=== PATIENT | male | born 1955 | race Caucasian/White ===

== ENCOUNTER 2020-01-07 11:37 | Outpatient (CLI) | payer OTHER, SELFPAY ==
[2020-01-07 11:38] VITALS: BMI 28.7
--- NOTE | 2020-01-07 11:38 | NMCV_ITS ---
NM pavel perf SPECT r/s* [id number] Kevin Moreland Age: 64 Gender: M : 1955 Exam Date: 01/07/2020 11:38 Ordering Phys: Epi Daniels DO Technologist: THUAN Boggs Exam Location: [facility] Indications: Chest pain STRESS TEST [facility] IMAGE PROTOCOL Rest/Stress 1 Lexiscan Day Radiopharmaceutical Dose (mCi) Administration Site Administered by Rest: Tc-99m 10.8 IV THUAN Boggs Sestamibi Stress:Tc-99m 32.3 IV THUAN Boggs Sestamibi Rest: 07-Jan-2020 60 Discovery 630 Stress: 07-Jan-2020 30 Discovery 630 0.4mg Lexiscan. Images obtained in supine and prone position. SPECT RESULTS Technical Quality: Good Raw Data Analysis: Normal Image Corrections: No attenuation or motion correction applied Summed Stress Score: 6 Summed Rest Score: 5 Summed Difference Score: 1 PERFUSION FINDINGS Medium-size area of patchy decreased tracer uptake noted in basal to distal inferior and basal to mid inferolateral wall on the rest images which improved on stress images suggestive of artifact. FUNCTIONAL RESULTS (calculated via Gated SPECT) Stress Image LV EF (%): 52 Stress EDV (mL):91 TID: 1.12 Stress ESV (mL):44 Rest Image LV EF (%): 52 FUNCTIONAL FINDINGS: There is normal left ventricular systolic function. IMPRESSIONS This study is negative for ischemia.TID ratio is elevated which could be secondary to left ventricle hypertrophy/subendocardial ischemia in the absence of other parameters. EKG segment will be documented separately. Ian Iniguez MD (Electronically Signed) Final Date: 07 January 2020 14:43 S
--- NOTE | 2020-01-07 11:38 | ECG_ITS ---
NAME OF STUDY: LEXISCAN SESTAMIBI STRESS TEST INDICATION: Chest Pain, NOTE: Please note that this is the electrocardiogram portion of the Lexiscan/Sestamibi stress test. The perfusion scan will be documented separately. DATA: Baseline heart rate was 52 beats per minute. Baseline blood pressure was 144/72 millimeters of mercury. Target heart rate was 158. Maximum heart rate achieved was 105. which was 66 % of the predicted target heart rate. Maximum blood pressure was 144/83 millimeters of mercury. The reason for ending the test was completion of the protocol. The patient did not experience any symptoms. ELECTROCARDIOGRAM: BASELINE: Sinus bradycardia. Normal axis. Otherwise, no ST-T changes suggestive of ischemia noted. No arrhythmia noted. After Lexiscan injection, no ST-T changes suggestive of ischemic noted. No arrhythmia noted. CONCLUSION: Please note due to baseline abnormality of the EKG specificity and sensitivity of the EKG portion of LexiScan MIBI stress test will be low 1. EKG not suggestive of ischemia 2. Lexiscan injection unremarkable. 3. Perfusion scan will be documented separately. Electronically Signed On 01-07-2020 15:33:36 MEDIA CONSULTANT by Ian Iniguez M.D. [id number]
[2020-01-07] MEDS: regadenoson 0.4 Mg/5 ml Syringe IVP (12:42)
[2020-01-07 13:03] VITALS: BP 126/83; PULSE 68
== END 2020-01-07 11:38 | disposition home or self-care (01) ==
LOC: CDL 11:37
PROVIDERS: Family Provider Emergency Medicine Emergency Medical Services; Visit Provider Emergency Medicine Emergency Medical Services
DX: R07.9 Chest pain, unspecified (principal); R00.1 Bradycardia, unspecified
CPT/HCPCS: 78452; 93017; A9500; J2785

== ENCOUNTER 2022-01-21 11:30 | Emergency (ER) | payer OTHER, SELFPAY ==
--- NOTE | 2022-01-21 11:44 | W.ED.FALL ---
HPI - Fall General: Chief Complaint: Fall Stated Complaint: fall 6ft, bilateral rib pain, side pain Time Seen by Provider: 01/21/22 11:43 History of Present Illness: Mr. Moreland is a 66 old gentleman without significant past medical history presents the emergency department due to fall injury. He has been at his baseline health and was working on cutting branches on a tree standing on his driveway. His driveway is a turn and he was in the upper portion which is approximately 6 feet above the lower portion. A half wall gave way that he was leaning against and he fell landing on his right side. He denies associated loss of consciousness. He estimates he laid on the ground for about 5 minutes before being up to walk inside. He currently has moderate to severe right rib pain and associated shortness of breath. Also has right femur pain that is worse with palpation however he was able to ambulate. No other specific changes in health, exacerbating, relieving factors identified. Onset (ago): minute(s) Fall from: from height (distance) Fall witnessed: no Place fall occurred: home Loss of consciousness: None Prolonged down time: no Symptoms prior to fall: none Context: other Location of injury: chest and other Severity: severe Quality: sharp Review of Systems General: Reports: 10 or more systems reviewed and unremarkable except in HPI and below PFSH ED PFSH: Medical History GERD (gastroesophageal reflux disease) Graves disease Hypothyroidism Pure hypercholesterolemia Surgical History H/O vasectomy History of subtotal thyroidectomy 1991 Family History Mother Cancer Brother Cancer Social History Smoking and tobacco status: never smoked Physical Exam Const: COMMON NORMALS: alert GENERAL APPEARANCE: cooperative, well developed and in distress (pain) HENMT: COMMON NORMALS: normocephalic and atraumatic HEAD & SCALP: normocephalic and atraumatic OTHER: No evidence of head trauma. Jaw alignment normal. No feldman signs or raccoon eyes. No septal hematoma. Eye: COMMON NORMALS: conjunctivae normal CONJUNCTIVA: Yes conjunctivae normal SCLERA: sclerae normal Neck/C-Spine: COMMON NORMALS: supple GENERAL: Yes trachea midline Chest: OTHER: R sided chest wall ttp Resp: COMMON NORMALS: clear to auscultation bilaterally EFFORT & INSPECTION: Yes able to speak in complete sentences and Yes tachypneic AUSCULTATION: clear to auscultation bilaterally Cardio: COMMON NORMALS: regular rhythm RATE: bradycardic RHYTHM: regular rhythm GI: COMMON NORMALS: Soft to palpation PALPATION: Yes Soft to palpation and No Tenderness to palpation present (GI) PERCUSSION: normal to percussion Back/Pelvis: COMMON NORMALS: no thoracic nor lumbar tenderness Extremity: NARRATIVE EXTREMITY EXAM: Right mid to prox femur ttp, distal CMS intact GENERAL: No edema Neuro: COMMON NORMALS: moves all extremities SENSORIUM/ORIENTATION: Yes alert and No Orientation impaired Psych: COMMON NORMALS: mental status grossly normal and Normal thought process present THOUGHT PROCESS: Normal thought process present Course ED course: - Patient was seen and evaluated by me at bedside - Patient placed on cardiac monitors, IV access obtained - Initial evaluation notable for exam as above. Head to toe exam performed with isolated injuries as above, no evidence of head trauma. - Analgesia ordered, no indication for Tdap update - Given absence of prodromal symptoms and clear explanation for fall no labs indicated at this time - Imaging notable for no pneumothorax, possible nondisplaced posterior right rib fracture noted on chest CT. Negative right femur, negative pelvis. - Upon serial reexamination after treatment the patient was improved with analgesia - Based on patient history, evaluation, labs, and imaging as interpreted the most likely cause of the patient's condition is rib fracture secondary to fall - The results of ED evaluation were discussed with the patient including prescriptions and/or symptomatic cares (if applicable) including appropriate and responsible use, followup plan, and return precautions. Discussed importance of incentive spirometer use and adequate pain control. The patient verbalized understanding and felt safe for discharge. - Patient discharged in satisfactory condition. Note: Click bubbles or prepopulated grant in note writing are used for assistance with data collection and billing and are inherently more limited than narrative and other text portions of this note. Please use narrative for additional clinical history and defer to narrative/free test for any case of contradictory information. If information appears in only free text or click bubble it should be considered present or absent as reported. Please contact note principal technical writer for clarifications of clinical information or contradictory information. MDM is a brief summary, contradictory or erroneous seeming information should be clarified and full note should be reviewed. Vital Signs: Vital signs: Vital Signs Temperature 97.9 F 01/21/22 11:46 Pulse Rate 51 L 01/21/22 13:49 Respiratory Rate 16 01/21/22 13:49 Blood Pressure 151/83 01/21/22 13:49 Pulse Oximetry 93 01/21/22 13:49 MDM - Fall Medical Decision Making 66-year-old gentleman presenting to the emergency department for mechanical fall reporting femur and rib pain. Found to have nondisplaced isolated rib fracture. Symptom improvement with pain control. Satisfactory for outpatient management. Patient discharged with incentive spirometer. Medical Records I reviewed the patient's medical records. Lab Data I reviewed the patient's lab results. Radiology Impressions Chest CT 01/21/22 11:53 IMPRESSION: 1. No pneumothorax or pulmonary contusion. 2. Possible nondisplaced posterior RIGHT 12th rib fracture. Femur X-Ray 01/21/22 11:53 IMPRESSION: Negative right femur. Pelvis X-Ray 01/21/22 11:53 IMPRESSION: 1. No acute pelvic fracture. Discharge Plan Discharge Patient Disposition: Home Clinical Impression: Fall, Fracture of rib, Multiple contusions Condition: Stable Prescriptions: New oxycodone 5 mg tablet 5 mg PO Q6H PRN (Reason: pain) Qty: 20 0RF Miralax 17 gram/dose powder 17 g PO DAILY PRN (Reason: while taking oxycodone) Qty: 238 0RF No Action omeprazole 20 mg capsule,delayed release(DR/EC) 20 mg PO BID PRN (Reason: Heartburn) 0RF calcium carbonate [Tums] 200 mg calcium (500 mg) tablet,chewable 200 mg PO PRN PRN (Reason: Heartburn) 0RF sucralfate 1 gram tablet 1 gm PO DAILY PRN (Reason: unknown) 0RF Vitamin C 500 mg Tablet 2,000 mg PO QPM 0RF Nitrostat 0.4 mg Tablet, Sublingual 0.4 mg SUBLINGUAL Q5M PRN (Reason: Chest Pain) 0RF Rx Instructions: do not exceed 3 doses per episode Excedrin Migraine 250-250-65 mg Tablet 3 tab PO Q6H PRN (Reason: Migraine Headache) 0RF Vitamin D3 125 mcg (5,000 unit) Tablet 125 mcg PO QPM 0RF Vitamin B-12 1 tab PO QPM 0RF Discharge Orders: Discharge ED (Routine); Ordered 01/21/22 Ordered By: Lukas Monge Referrals: Epi Daniels DO [Primary Care Provider] - Discharge Diet: Usual diet Discharge Activity: Increase activity as tolerated Patient Instructions: Rib Fracture (ED), Contusion in Adults (ED), Opioid Safety Activity Restrictions/Additional Instructions: Thank you for visiting the emergency department. You were seen and evaluated for fall. You were found to have a posterior right 12th rib fracture which likely explains your symptoms. Additionally you likely have strains and contusions related to the fall. You will be given a prescription for oxycodone, as discussed this is an opioid and does have associated risks. Please use [id number] medications like acetaminophen and ibuprofen in addition to this. Please do not exceed the daily recommended dosages of these medications and please keep in mind that many namebrand medications contain the same active ingredients. Please use the incentive spirometer. Please follow-up with your primary care provider. Please return to the emergency department for uncontrolled symptoms, cough, bloody sputum, infectious symptoms such as fever without a clear source, or anything else that you are concerned about and feel needs emergency department evaluation. Coding Level of Care Code ED Electronic Warfare Operator for Sherri Canas Exam Comprehensive
[2022-01-21 11:46] VITALS: BP 135/76; PULSE 55; RESP 21; TEMP 36.6; O2SAT 97; BMI 28.5
--- NOTE | 2022-01-21 11:53 | XR_ITS ---
WS: [id number] Exam: XR pelvis 1-2V* [id number] Date/Time of Exam: 01/21/2022 12:12 PM Reason For Exam: fall, right thigh pain No acute pelvic fracture. The hips are bilaterally intact. DJD of the SI joints. Unremarkable soft ti ssues. XR/XR pelvis 1-2V* [id number] IMPRESSION: 1. No acute pelvic fracture.
--- NOTE | 2022-01-21 11:53 | CT_ITS ---
WS: [id number] CT CHEST WITHOUT INTRAVENOUS CONTRAST HISTORY: fall, right sided rib pain TECHNIQUE: Contiguous 5 mm axial imaging performed on the thorax. Coronal and sagittal reformats are submitted. All CT scans at [facility] use at least one of these dose optimization techniques: automated exposure control; mA and/or kV adjustment per patient size (includes targeted exams where dose is matched to clinical indication); or iterative reconstruction. CONTRAST: None DLP: 852.03 mGy.cm COMPARISON: 01/10/2017 Lungs and central airway: No pulmonary mass or nodule. No contusion or hematoma. No laceration. Pleura: Normal. No pleural effusion. Heart and pericardium: Normal size heart with no pericardial effusion. Mediastinum and selene: No mediastinum or hilar adenopathy. Vessels: Normal size aortic and pulmonary artery. No coronary artery calcifications. Chest wall and lower neck: No soft tissue masses. Upper abdomen: Visualized liver is normal. No fluid around the liver. No adrenal mass. Small hiatal h ernia. Osseous structures: No destructive process. Indeterminate for rib fracture involving the posterior RI GHT 12th rib. CT/CT chest wo con [id number] IMPRESSION: 1. No pneumothorax or pulmonary contusion. 2. Possible nondisplaced posterior RIGHT 12th rib fracture.
--- NOTE | 2022-01-21 11:53 | XR_ITS ---
WS: [id number] Exam: XR femur RT min 2V* [id number] Date/Time of Exam: 01/21/2022 12:12 PM Reason For Exam: fall, mid to proximal pain No fractures, soft tissue swelling, or calcifications are noted. The femur is in adequate position. No periosteal reaction is noted. XR/XR femur RT min 2V* [id number] IMPRESSION: Negative right femur.
[2022-01-21 11:59] VITALS: RESP 18; O2SAT 97
[2022-01-21] MEDS: ondansetron 2 mg/ML SDV 2 mL 4 MG IVP (11:59)
[2022-01-21] MEDS: morphine 4 mg/mL SDV 1 mL IVP (11:59)
--- NOTE | 2022-01-21 13:07 | PC.PHAR ---
pt and pts verified pts medications-pt state he stop taking rosuvastatin a year ago
[2022-01-21] MEDS: oxyCODONE 5 mg IR Tab/Cap PO (13:18)
[2022-01-21] MEDS: acetaminophen 500 mg Tablet 1000 MG PO (13:18)
[2022-01-21] MEDS: ketorolac 30 mg/mL INJ 15 MG IVP (13:18)
[2022-01-21 13:20] VITALS: BP 149/80; PULSE 55; RESP 16; O2SAT 96
[2022-01-21 13:49] VITALS: BP 151/83; PULSE 51; RESP 16; O2SAT 93
== END 2022-01-21 13:51 | disposition home or self-care (01) ==
PROVIDERS: Emergency Provider Emergency Medicine; PCP Emergency Medicine Emergency Medical Services
DX: S22.31XA Fracture of one rib, right side, initial encounter for closed fracture (principal); T14.8XXA Other injury of unspecified body region, initial encounter; W17.89XA Other fall from one level to another, initial encounter
CPT/HCPCS: 71250; 72170; 73552; 96374; 96375; 99283; J1885; J2270; J2405

== ENCOUNTER → 2022-10-14 08:23 | Outpatient (BNVA) | payer OTHER, SELFPAY | PROVIDERS: PCP Emergency Medicine Emergency Medical Services; Visit Provider Specialist | DX: M94.261 Chondromalacia, right knee (principal) | CPT/HCPCS: 73560; 73565; 99204 ==

== ENCOUNTER → 2022-10-22 08:03 | Outpatient (BNVA) | payer MEDICARE, OTHER, SELFPAY | PROVIDERS: PCP Family Medicine; Visit Provider Otolaryngology | DX: J32.9 Chronic sinusitis, unspecified (principal) | CPT/HCPCS: 99203 ==

== ENCOUNTER 2022-12-17 07:37 | Outpatient (CLI) | payer OTHER, SELFPAY ==
--- NOTE | 2022-12-17 08:00 | MR_ITS ---
WS: [id number] MRI RIGHT KNEE NONCONTRAST TECHNIQUE: Axial PD, coronal PD fat sat, coronal PD, sagittal PD, and sagittal PD fat-sat images obta ined. CLINICAL INFORMATION: pain COMPARISON: None. FINDINGS: Distal quadriceps and patella tendons are intact. Prepatellar and infrapatellar soft tissue edema. Sl ightly hypertrophic patella. Normal ACL and PCL. Mild chronic thinning of the medial lateral meniscus . Blunting of the medial meniscus with horizontal tear of the posterior horn medial meniscus extendin g to the articular surface. Additional chronic signal abnormality in the medial meniscus. Mild chondromalacia patella. No subchondral edema. No significant joint effusion. Normal medial and l ateral patellar retinaculum. Normal lateral collateral ligament. Normal popliteus. Medial collateral ligament appears intact. Normal popliteal fossa. MR/MR knee RT wo con* [id number] IMPRESSION: 1. Normal ACL and PCL. 2. Tear of the posterior horn medial meniscus extending articular surface yesenia pherally. Blunting of the medial meniscus. Normal lateral meniscus. 3. Mild chondromalacia patella. No subchondral edema. 4. Normal medial and lateral collateral ligaments. Outbridge grading:
== END 2022-12-17 07:38 | disposition home or self-care (01) ==
PROVIDERS: PCP Family Medicine; Visit Provider Specialist
DX: S83.241A Other tear of medial meniscus, current injury, right knee, initial encounter (principal); X58.XXXA Exposure to other specified factors, initial encounter; M22.41 Chondromalacia patellae, right knee
CPT/HCPCS: 73721

== ENCOUNTER 2022-12-21 13:40 | Emergency (ER) | payer OTHER, SELFPAY ==
[2022-12-21] VITALS (9 sets, daily range): BP systolic 132–144; BP diastolic 78–92; PULSE 84–103; RESP 18–25; TEMP 36.7; O2SAT 95–98
--- NOTE | 2022-12-21 13:50 | ECG_ITS ---
[facility] Test Date: 2022-12-21 Pat Name: Kevin Moreland Department: Room: Gender: Male Diplomatic Officer: : 1955 Requested By: Lukas Monge Order Number: [id number] Carrie MD: Nina Fabian M.D. Measurements Intervals Curtis Rate: 91 P: 39 HI: 163 QRS: -57 QRSD: 101 T: 51 QT: 352 QTc: 433 Interpretive Statements SINUS RHYTHM WITH OCCASIONAL VENTRICULAR PREMATURE COMPLEXES LEFT AXIS DEVIATION [QRS AXIS < -30] INCOMPLETE RIGHT BUNDLE BRANCH BLOCK [90+ ms QRS DURATION, TERMINAL R IN V1/V2, 40+ ms S IN I/aVL/V4/V5/V6] POSSIBLE ANTERIOR MYOCARDIAL INFARCTION , PROBABLY OLD [30 ms Q WAVE IN V3/V4, OR R < 0.2 mV IN V4] No previous ECG available for comparison Electronically Signed On 12-22-2022 8:48:08 RETAIL FURNITURE SALES by Nina Fabian M.D. [id number]
--- NOTE | 2022-12-21 13:57 | XRR_ITS ---
PROCEDURE INFORMATION: Exam: XR Chest Exam date and time: 12/21/2022 2:13 PM Age: 67 years old Clinical indication: Pain; Radiating; Additional info: Cp TECHNIQUE: Imaging protocol: Radiologic exam of the chest. Views: 1 view. COMPARISON: CT chest [facility] [id number] 01/21/2022 12:44 PM FINDINGS: Lungs: Unremarkable. No consolidation. Pleural spaces: Unremarkable. No pleural effusion. No pneumothorax. Heart/Mediastinum: Cardiac silhouette is upper limits of normal. Bones/joints: Mild spondylotic change thoracic spine XR/XR chest 1V portable [id number] IMPRESSION: No acute cardiopulmonary abnormality.
--- NOTE | 2022-12-21 13:57 | ED_ITS ---
HPI - Chest Pain General: Chief Complaint: Chest Pain Stated Complaint: possible heart attack Time Seen by Provider: 12/21/22 13:57 History of Present Illness: Mr. Moreland is a 67-year-old gentleman with history of chronic sinusitis, esophageal spasms, GERD presenting to the emergency department for chest pain. He reports intermittent episodes over the past month that have been getting worse with greater intensity and more frequency. Often exertional and describes as sharp substernal pain with occasional radiation to the arms and left leg as well as up to the neck. Intensity symptoms is now moderate to severe. Course has worsened. No other specific changes in health, exacerbating, or alleviating factors identified. Onset (ago): week(s) Timing of current episode: episodic Prior episodes: Yes Onset: during exertion Pain location: substernal Pain radiation: left arm and neck Severity: severe Quality: aching and sharp Relieving factors: nothing Exacerbating factors: exertion Associated symptoms: Reports diaphoresis, dyspnea and nausea Review of Systems General: Reports: 10 or more systems reviewed and unremarkable except in HPI and below Const: Reports: diaphoresis Resp: Reports: dyspnea GI: Reports: nausea PFSH ED PFSH: Medical History Cervical spine pain Colon polyps GERD (gastroesophageal reflux disease) GERD (gastroesophageal reflux disease) Graves disease Hypothyroidism Pure hypercholesterolemia Trigeminal neuralgia Surgical History H/O vasectomy History of subtotal thyroidectomy 1991 Family History Mother Cancer Brother Cancer Social History Smoking and tobacco status: never smoked Physical Exam Const: COMMON NORMALS: alert GENERAL APPEARANCE: cooperative and well developed HENMT: COMMON NORMALS: normocephalic and atraumatic HEAD & SCALP: normocephalic and atraumatic Eye: COMMON NORMALS: conjunctivae normal CONJUNCTIVA: Yes conjunctivae normal SCLERA: sclerae normal Neck/C-Spine: COMMON NORMALS: supple GENERAL: Yes trachea midline Resp: COMMON NORMALS: clear to auscultation bilaterally EFFORT & INSPECTION: Yes able to speak in complete sentences AUSCULTATION: clear to auscultation bilaterally Cardio: COMMON NORMALS: regular rate RATE: regular rate GI: COMMON NORMALS: Soft to palpation PALPATION: Yes Soft to palpation and No Tenderness to palpation present (GI) Extremity: GENERAL: Yes normal exam except as noted and No edema Neuro: COMMON NORMALS: moves all extremities SENSORIUM/ORIENTATION: Yes alert and No Orientation impaired Psych: COMMON NORMALS: mental status grossly normal and Normal thought process present THOUGHT PROCESS: Normal thought process present Course Vital Signs: Vital signs: Vital Signs Temperature 98.1 F 12/21/22 13:47 Pulse Rate 87 12/21/22 18:00 Respiratory Rate 24 H 12/21/22 18:00 Blood Pressure 136/90 12/21/22 18:00 Pulse Oximetry 95 12/21/22 18:00 Oxygen Delivery Wy thod 12/21/22 13:47 MDM - Chest Pain Medical Decision Making 67-year-old gentleman presenting with worsening chest pain with concerning features for cardiac etiology. Exam as above. EKG shows sinus rhythm with axis deviation, there are nonspecific ST segment abnormalities, no STEMI. Labs personally interpreted by me. No leukocytosis, mild hemoconcentration. Metabolic panel without significant derangement requiring intervention. Negative range 2-hour delta troponin. D-dimer is elevated. Chest x-ray interpreted by me with no large pneumothorax or lobar consolidation. This is confirmed on radiology report. Given elevated D-dimer and intermediate location for epigastric and chest origin of pain CT imaging is warranted. CT imaging with no evidence of large pulmonary emboli or other acute pathology in the chest. No large pneumoperitoneum in the abdomen. Radiology report confirms essentially unremarkable study. ED course patient was treated with morphine, Toradol, aspirin with some improvement in symptoms. I reviewed prior chest and myocardial perfusion studies. I also reviewed recent notes however these are not pertinent to concerning etiology of patient's symptoms as they are with ENT and orthopedics. The most likely etiology of patient's symptoms is unspecified chest pain. Given patient description of characteristics as well as clinical history I am concerned for a cardiac etiology and recommended inpatient testing as the patient is not low risk by heart score. The patient declined admission. The results of ED evaluation were discussed with the patient including possible disposition options. I discussed risk stratification by heart score and estimated risk of major adverse cardiac events. The patient wishes to proceed with outpatient management. I discussed prescriptions and/or symptomatic cares (if applicable) including appropriate and responsible use, followup plan, and return precautions. The patient verbalized understanding and felt safe for discharge. A broad range of differentials were considered in this case and ED evaluation tailored to likely and clinically significant etiologies as appropriate. Medical complexity is increased by patient's significant pertinent comorbidities including GERD. Based on my interaction with the patient and their medical understanding/literacy I believe that the presentation to the emergency department is reasonable as they could not reasonably differentiate and/or assess for potentially emergent conditions without my evaluation. Medical Records I reviewed the patient's medical records. Lab Data I reviewed the patient's lab results. 12/21/22 14:04 12/21/22 14:04 Radiology Impressions Chest X-Ray 12/21/22 13:57 IMPRESSION: No acute cardiopulmonary abnormality. Chest/Abdomen/Pelvis CTA 12/21/22 14:56 IMPRESSION: 1. Unremarkable CTA chest, abdomen, and pelvis, without acute findings. 2. Other nonacute findings as noted above. Laboratory Results WBC 8.3 10^3/uL (4.0-10.0) 12/21/22 14:04 RBC 5.67 10^6/uL (4.1-5.3) H 12/21/22 14:04 Hgb 17.1 g/dL (11.7-16.6) H 12/21/22 14:04 Hct 50.4 % (42.0-52.0) 12/21/22 14:04 MCV 88.9 fl (80-94) 12/21/22 14:04 MCH 30.2 pg (28.0-34.0) 12/21/22 14:04 MCHC 33.9 g/dL (30.0-36.0) 12/21/22 14:04 RDW 12.3 % (12.1-15.1) 12/21/22 14:04 Plt Count 183 10^3/cmm (130-400) 12/21/22 14:04 MPV 10.5 fL (7.4-10.4) H 12/21/22 14:04 Neut % (Auto) 76.3 % 12/21/22 14:04 Lymph % (Auto) 15.3 % 12/21/22 14:04 Dauphin % (Auto) 7.0 % 12/21/22 14:04 Eos % (Auto) 0.5 % 12/21/22 14:04 Baso % (Auto) 0.4 % 12/21/22 14:04 Neut # (Auto) 6.33 10^3/uL (1.8-7.7) 12/21/22 14:04 Lymph # (Auto) 1.3 10^3/uL (0.8-4.8) 12/21/22 14:04 Dauphin # (Auto) 0.6 10^3/uL (0.2-0.9) 12/21/22 14:04 Eos # (Auto) 0.0 10^3/uL (0.0-0.8) 12/21/22 14:04 Baso # (Auto) 0.0 10^3/uL (0.0-0.1) 12/21/22 14:04 Nucleated RBC % (auto) 0 % 12/21/22 14:04 Nucleated RBCs # 0.0 /100WBC 12/21/22 14:04 D-Dimer 0.65 ug/mIFEU (0-0.59) H 12/21/22 14:04 Sodium 136 mmol/L (136-145) 12/21/22 14:04 Potassium 4.0 mmol/L (3.5-5.1) 12/21/22 14:04 Chloride 99 mmol/L (98-107) 12/21/22 14:04 Carbon Dioxide 24 mmol/L (22-29) 12/21/22 14:04 Anion Gap 17.0 (5-19) 12/21/22 14:04 BUN 13 mg/dL (8-23) 12/21/22 14:04 Creatinine 0.9 mg/dL (0.7-1.2) 12/21/22 14:04 GFR Calculation 84.7 mL/min (90-130) L 12/21/22 14:04 Glucose 110 mg/dL (65-115) 12/21/22 14:04 Calculated Osmolality 283 mOsm/kg (285-295) L 12/21/22 14:04 Calcium 9.8 mg/dL (8.5-10.5) 12/21/22 14:04 Total Bilirubin 0.6 mg/dL (0.15-1.2) 12/21/22 14:04 AST 24 U/L (0-40) 12/21/22 14:04 ALT 21 U/L (0-41) 12/21/22 14:04 Alkaline Phosphatase 95 U/L (40-130) 12/21/22 14:04 Troponin T Baseline 6 ng/L (0-15) 12/21/22 14:04 Troponin T 120 Minute 7.24 ng/L (0-15) 12/21/22 16:50 Delta Troponin T 1.24 ABS# (0-10) 12/21/22 16:50 NT-Pro-B Natriuret Pep 67 pg/mL (0-125) 12/21/22 14:04 Total Protein 7.7 g/dL (6.6-8.7) 12/21/22 14:04 Albumin 4.8 g/dL (3.5-5.2) 12/21/22 14:04 Globulin 2.9 g/dL (1.3-4.6) 12/21/22 14:04 Lipase 41 U/L (13-60) 12/21/22 14:04 Discharge Plan Discharge Patient Disposition: Home Clinical Impression: Chest pain, Abdominal pain Condition: Stable Prescriptions: No Action omeprazole 20 mg capsule,delayed release(DR/EC) 20 mg PO BID PRN (Reason: Heartburn) calcium carbonate [Tums] 200 mg calcium (500 mg) tablet,chewable 200 mg PO PRN PRN (Reason: Heartburn) sucralfate 1 gram tablet 1 gm PO DAILY PRN (Reason: unknown) meloxicam 15 mg tablet 15 mg PO DAILY Qty: 30 0RF meloxicam 15 mg tablet 15 mg PO DAILY Qty: 30 2RF fluticasone propionate 50 mcg/actuation spray,suspension 2 spray intranasal DAILY 360 Days Qty: 16 11RF Rx Instructions: administer into each nostril amoxicillin-pot clavulanate 875-125 mg tablet 1 tab PO BID PRN (Reason: Acute and chronic sinusitis) 15 Days Qty: 30 0RF Vitamin C 500 mg Tablet 2,000 mg PO QPM Nitrostat 0.4 mg Tablet, Sublingual 0.4 mg SUBLINGUAL Q5M PRN (Reason: Chest Pain) Rx Instructions: do not exceed 3 doses per episode Excedrin Migraine 250-250-65 mg Tablet 3 tab PO Q6H PRN (Reason: Migraine Headache) Vitamin D3 125 mcg (5,000 unit) Tablet 125 mcg PO QPM Vitamin B-12 1 tab PO QPM oxycodone 5 mg tablet 5 mg PO Q6H PRN (Reason: pain) Qty: 20 0RF Miralax 17 gram/dose powder 17 g PO DAILY PRN (Reason: while taking oxycodone) Qty: 238 0RF Discharge Orders: Discharge ED (Routine); Ordered 12/21/22 Ordered By: Lukas Monge Referrals: Rio Walters MD [Primary Care Provider] - Discharge Diet: Usual diet Discharge Activity: Increase activity as tolerated Patient Instructions: Chest Pain (ED), Abdominal Pain (ED), Opioid Safety, Pain Management Activity Restrictions/Additional Instructions: Thank you for visiting the emergency department. You were seen and evaluated for chest and abdominal pain. The exact cause of your symptoms is unclear. Given increasing frequency and intensity I am concerned about other possibilities including cardiac origins of your pain. Your not low risk for major adverse cardiac events. After discussion we will plan to refer for outpatient cardiac evaluation. Please also follow-up with your primary care provider. Return to the emergency department for anything that you are concerned about a feel needs emergency department evaluation. Coding Level of Care Code ED Coding Compliance Manager for Sherri Fwd Exam Comprehensive
[2022-12-21] MEDS: aspirin 81 mg Chew Tablet 324 MG PO (14:11)
[2022-12-21] MEDS: morphine 4 mg/mL SDV 1 mL IVP (14:26)
[2022-12-21 14:27] LABS: Basophils % 0.4 %; Eosinophils % 0.5 %; Hematocrit 50.4 % (42.0-52.0); Hemoglobin 17.1 g/dL (11.7-16.6); Lymphocytes # 1.3 10^3/uL (0.8-4.8); Lymphocytes % 15.3 %; Mean Corpuscular HGB Conc 33.9 g/dL (30.0-36.0); Mean Corpuscular Hemoglobin 30.2 pg (28.0-34.0); Mean Corpuscular Volume 88.9 fl (80-94); Mean Platelet Volume 10.5 fL (7.4-10.4); Monocytes # 0.6 10^3/uL (0.2-0.9); Neutrophils # 6.33 10^3/uL (1.8-7.7); Neutrophils % 76.3 %; Nucleated Red Blood Cells % 0 %; Platelet Count 183 10^3/cmm (130-400); Red Blood Count 5.67 10^6/uL (4.1-5.3); Red Cell Distribution Width 12.3 % (12.1-15.1); White Blood Count 8.3 10^3/uL (4.0-10.0)
[2022-12-21 14:51] LABS: D Dimer 0.65 ug/mIFEU (0-0.59)
[2022-12-21 14:55] LABS: Troponin(5th) Baseline 6 ng/L (0-15)
--- NOTE | 2022-12-21 14:56 | CTR_ITS ---
PROCEDURE INFORMATION: Exam: CTA Chest With Contrast CTA Abdomen and Pelvis With Contrast Exam date and time: 12/21/2022 3:31 PM Age: 67 years old Clinical indication: Angina pectoris; Other: Chest and epigastric pain, leg paresthesias, eval aorta TECHNIQUE: Imaging protocol: Computed tomographic angiography of the chest with contrast. Computed tomographic angiography of the abdomen and pelvis with contrast. 3D rendering (Not supervised by radiologist): MIP and/or 3D reconstructed images were created by the technologist. Radiation optimization: All CT scans at this facility use at least one of these dose optimization techniques: automated exposure control; mA and/or kV adjustment per patient size (includes targeted exams where dose is matched to clinical indication); or iterative reconstruction. Contrast material: OMNI 350; Contrast volume: 100 ml; Contrast route: INTRAVENOUS (IV); COMPARISON: CR XR pelvis 1-2V* [id number] 01/21/2022 12:02 PM RADIATION DOSE METRICS: Total DLP (mGy-cm): 1706.88 FINDINGS: VASCULATURE: Pulmonary arteries: Normal. No pulmonary emboli. Aorta: No aortic aneurysm. No aortic dissection. Celiac trunk and mesenteric arteries: No occlusion or significant stenosis. Renal arteries: No occlusion or significant stenosis. Right iliac arteries: No occlusion or significant stenosis. Left iliac arteries: No occlusion or significant stenosis. CHEST: Lungs: Unremarkable. No consolidation. No masses. Vascular crowding within the dependent aspect of the lungs bilaterally. Pleural spaces: Unremarkable. No pneumothorax. No pleural effusion. Heart: Unremarkable. No cardiomegaly. No pericardial effusion. Degenerative change thoracic spine with suggestion of mild hemangiomatous change within several thoracic vertebra.. ABDOMEN AND PELVIS: Liver: No mass. Gallbladder and bile ducts: Unremarkable. No calcified stones. No ductal dilation. Pancreas: Unremarkable. No mass. No ductal dilation. Spleen: Unremarkable. No splenomegaly. Adrenal glands: Unremarkable. No mass. Kidneys and ureters: Unremarkable. No solid mass. No hydronephrosis. Small hypodense fluid density cyst from the posterior cortex of the left kidney of slightly greater than 1 cm. Stomach and bowel: Unremarkable. No obstruction. No mucosal thickening. Moderate stool volume in the colon Appendix: No evidence of appendicitis. Intraperitoneal space: Unremarkable. No free air. No significant fluid collection. Urinary bladder: Well-distended and with pseudo diverticular appearance posteriorly on the axial images. Reproductive: Several benign prostate calcification and prostate gland is mildly prominent.. Lymph nodes: Unremarkable. No enlarged lymph nodes. Bones/joints: Degenerative change lumbar spine. Soft tissues: Unremarkable. CT[facility] [id number] IMPRESSION: 1. Unremarkable CTA chest, abdomen, and pelvis, without acute findings. 2. Other nonacute findings as noted above.
[2022-12-21 14:59] LABS: Alanine Aminotransferase 21 U/L (0-41); Albumin Level 4.8 g/dL (3.5-5.2); Alkaline Phosphatase 95 U/L (40-130); Aspartate Amino Transferase 24 U/L (0-40); Blood Urea Nitrogen 13 mg/dL (8-23); Calcium 9.8 mg/dL (8.5-10.5); Carbon Dioxide 24 mmol/L (22-29); Chloride 99 mmol/L (98-107); Globulin 2.9 g/dL (1.3-4.6); Glomerular Filtration Rate 84.7 mL/min (90-130); Glucose 110 mg/dL (65-115); Lipase 41 U/L (13-60); NT Pro B Type Natriuretic Pept 67 pg/mL (0-125); Osmolality Calculated 283 mOsm/kg (285-295); Sodium 136 mmol/L (136-145); Total Bilirubin 0.6 mg/dL (0.15-1.2); Total Protein 7.7 g/dL (6.6-8.7)
[2022-12-21] MEDS: iohexol 350 mg/mL 500 mL Btl (per mL) IV (15:47)
--- NOTE | 2022-12-21 15:48 | ECG_ITS ---
[facility] Test Date: 2022-12-21 Pat Name: Kevin Moreland Department: Room: Gender: Male Physician In Private Practice: : 1955 Requested By: Lukas Monge Order Number: [id number] Carrie MD: Nina Fabian M.D. Measurements Intervals [place]aver Rate: 86 P: 45 LA: 180 QRS: -51 QRSD: 98 T: 52 QT: 361 QTc: 434 Interpretive Statements SINUS RHYTHM POSSIBLE LEFT ATRIAL ENLARGEMENT [-0.1mV P-WAVE IN V1/V2] LEFT ANTERIOR FASCICULAR BLOCK [QRS AXIS <= -45, QR IN I, RS IN II] Compared to ECG 12/21/2022 13:50:23 Left anterior fascicular block now present Ventricular premature complex(es) no longer present Left-axis deviation no longer present Incomplete right bundle-branch block no longer present Myocardial infarct finding no longer present Electronically Signed On 12-22-2022 9:19:53 METAL SPINNER by Nina Fabian M.D. [id number]
[2022-12-21 17:45] LABS: Troponin 5 2HR 7.24 ng/L (0-15)
[2022-12-21 18:16] LABS: Troponin 5 2HR Delta 1.24 ABS# (0-10)
[2022-12-21] MEDS: ketorolac 30 mg/mL INJ 15 MG IVP (18:17)
--- NOTE | 2022-12-23 16:10 | DCPLANNER ---
Addendum entered by Anyi Landeros 02/12/23 07:47: Patient had a follow up appointment scheduled with [facility] - patient did attend appointment Addendum entered by Anyi Landeros 12/26/22 13:27: Patient has a follow up appointment scheduled for Friday, February 03, 2023 at 2:[address] Matute at [facility]. Clinic will call patient with appointment information. Original Note: enterprise applications manager had message to schedule an outpatient stress test. Patient has [employer] insurance, case aide is unable to order the stress test and echo from the ER. enterprise applications manager sent patients information to the front office staff at [facility]. Patients information will be printed and reviewed. Clinic will call patient with appointment information.
== END 2022-12-21 18:25 | disposition home or self-care (01) ==
PROVIDERS: Emergency Provider Emergency Medicine; PCP Family Medicine
DX: R07.9 Chest pain, unspecified (principal); R10.9 Unspecified abdominal pain
CPT/HCPCS: 36415; 71045; 71275; 74174; 80053; 83690; 83880; 84484; 85025; 85378; 93005; 96374; 96375; 99285; J1885; J2270; Q9967

== ENCOUNTER → 2022-12-23 08:24 | Outpatient (BNVA) | payer MEDICARE, OTHER, SELFPAY | PROVIDERS: PCP Family Medicine; Visit Provider Otolaryngology | DX: J32.9 Chronic sinusitis, unspecified (principal) | CPT/HCPCS: 99213 ==

== ENCOUNTER 2023-01-28 08:50 | Outpatient (CLI) | payer MEDICARE, OTHER, SELFPAY ==
--- NOTE | 2023-01-28 09:02 | CT_ITS ---
WS: [id number] CT PARANASAL SINUSES HISTORY: chronic Sinusitis TECHNIQUE: Contiguous 2.5 mm axial images obtained through the sinuses. Images are reconstructed in s agittal and coronal planes. All CT scans at [facility] use at least one of these dose optimiz ation techniques: automated exposure control; mA and/or kV adjustment per patient size (includes targ eted exams where dose is matched to clinical indication); or iterative reconstruction. DLP: 496.08 mGy.cm COMPARISON: None available. Frontal sinuses: There is a very small amount of mucoperiosteal thickening in the frontal sinus. No a ir-fluid level. Frontal ethmoid recesses patent. No bone destruction. Sphenoid sinus: Negative. Ethmoid sinuses: Negative. No significant mucoperiosteal thickening. Maxillary sinus: Mild bilateral mucoperiosteal thickening. No air-fluid levels. No bone destruction. Ostiomeatal unit: Bilateral patent ostiomeatal units. There is a very small amount of mucoperiosteal thickening but no obstruction. Conchal bullosa LEFT middle turbinate. Mild curvature of the nasal septum to the RIGHT. Soft tissues surrounding the orbits and globes are n egative. CT/CT sinus wo con* [id number] IMPRESSION: 1. Mild mucoperiosteal thickening throughout the paranasal sinuses. No air-flu id levels. 2. No obstruction of the ostiomeatal unit. 3. Mild deviation of the nasal septum to the RIGHT.
== END 2023-01-28 08:51 | disposition home or self-care (01) ==
LOC: RAD 08:53
PROVIDERS: PCP Family Medicine; Visit Provider Otolaryngology
DX: J32.9 Chronic sinusitis, unspecified (principal); J34.2 Deviated nasal septum
CPT/HCPCS: 70486

== ENCOUNTER → 2023-02-03 14:10 | Outpatient (BNVA) | payer MEDICARE, OTHER, SELFPAY | PROVIDERS: PCP Emergency Medicine Emergency Medical Services; Visit Provider Internal Medicine Cardiovascular Disease | DX: R07.89 Other chest pain (principal); K21.9 Gastro-esophageal reflux disease without esophagitis; E78.00 Pure hypercholesterolemia, unspecified; E03.9 Hypothyroidism, unspecified; R06.02 Shortness of breath | CPT/HCPCS: 99204 ==

== ENCOUNTER → 2023-02-10 16:26 | Outpatient (BNVA) | payer MEDICARE, OTHER, SELFPAY | PROVIDERS: PCP Emergency Medicine Emergency Medical Services; Visit Provider Otolaryngology | DX: J32.9 Chronic sinusitis, unspecified (principal) | CPT/HCPCS: 99213 ==

== ENCOUNTER 2023-03-18 06:40 | Outpatient (CLI) | payer MEDICARE, OTHER, SELFPAY ==
[2023-03-18 06:59] VITALS: BMI 28.5
--- NOTE | 2023-03-18 07:09 | ECG_ITS ---
[facility] Test Date: 2023-03-18 Pat Name: Kevin Moreland Department: Room: Gender: Male Loop Tacker: : 1955 Requested By: Graciela Matute Order Number: [id number] Carrie MD: Graciela Matute M.D. Interpretive Statements NAME OF STUDY: EXERCISE SESTAMIBI STRESS TEST INDICATION: Chest Pain, PROCEDURE: The baseline electrocardiogram showed minimal left axis deviation. Some nonspecific T wave changes. At the baseline, the patient's blood pressure was 136/85 mm Hg with a heart rate of 60. The patient exercised for 7 minutes and 31 seconds on a standard Reymundo protocol. Patient attained a maximum heart rate of 149 beats per minute(96% of the maximum predicted heart rate) with a blood pressure at the peak exercise of 192/99 mm Hg. The EKG at the peak exercise revealed no significant changes. Patient did not have any chest pain or any significant arrhythmis with the exercise Sestamibi was injected 1 minute prior to the peak exercise During the recovery phase, there were no new changes. Blood pressure at the end of the recovery phase was 163/84 mm Hg with a heart rate of 81 per minute. CONCLUSION: 1. No significant EKG changes with the [treadmill exercise 2. No exercise-induced chest pain or cardiac arrhythmia 3. Fair exercise tolerance, attained a maximum of 10.2 METs 4. Sestamibi/Sestamibi perfusion results pending; see separate report. Electronically Signed On 03-23-2023 17:56:07 CDT by Graciela Matute M.D. [id number]
--- NOTE | 2023-03-18 07:10 | NMCV_ITS ---
NM pavel perf SPECT r/s* [id number] Kevin Moreland Age: 68 Gender: M : 1955 Exam Date: 03/18/2023 07:56 Ordering Phys: Graciela Matute MD ([email or web address]) Technologist: THUAN Liriano Exam Location: [facility] Indications: CORONARY ANGIOPLASTY STATUS STRESS TEST Please see separate stress test report in [facility] for full findings IMAGE PROTOCOL Rest/Stress 1 Exercise Day Radiopharmaceutical Dose (mCi) Administration Site Administered by Rest: Tc-99m 10.8 IV THUAN Boggs Sestamibi Stress:Tc-99m 33.0 IV THUAN Boggs Sestamibi Rest: 18-Mar-2023 60 Discovery 630 Stress: 18-Mar-2023 30 Discovery 630 Radiopharmaceutical was injected at 92 % maximum heart rate. Images obtained in supine and prone position. SPECT RESULTS Technical Quality: Excellent Raw Data Analysis: Normal Image Corrections: No attenuation or motion correction applied Summed Stress Score: 6 Summed Rest Score: 1 Summed Difference Score: 5 PERFUSION FINDINGS Moderate area of minimal to moderately decreased tracer uptake in the mid anterolateral, inferolateral, inferior and apical lateral wall segments. Significant reversibility was noted in these regions. FUNCTIONAL RESULTS (calculated via Gated SPECT) Stress Image LV EF (%): 72 Stress EDV (mL):98 TID: 0.86 Stress ESV (mL):27 FUNCTIONAL FINDINGS: Segmental wall motion analysis revealing no gross wall motion abnormalities IMPRESSIONS 1. Myocardial perfusion imaging revealing moderate area of minimal to moderately decreased tracer uptake in the anterolateral, inferolateral, inferior and apical lateral regions with significant reversibility suggesting ischemia in the distribution of the circumflex artery. 2. Normal LV ejection fraction 72%. 3. LV wall motion analysis revealing no gross wall motion abnormalities. 4. Normal LV volume Compared to the study from 01/07/2020, the area of ischemia appears to be new Dr Graciela Matute MD FAC (Electronically Signed) Final Date: 19 March 2023 08:04 S
[2023-03-18 09:09] VITALS: BP 163/84; PULSE 78
== END 2023-03-18 06:41 | disposition home or self-care (01) ==
LOC: CDL 06:41
PROVIDERS: PCP Emergency Medicine Emergency Medical Services; Visit Provider Internal Medicine Cardiovascular Disease
DX: R07.9 Chest pain, unspecified (principal)
CPT/HCPCS: 36415; 78452; 93017; A9500

== ENCOUNTER → 2023-04-10 14:02 | Outpatient (BNVA) | payer MEDICARE, OTHER, SELFPAY | PROVIDERS: PCP Emergency Medicine Emergency Medical Services; Visit Provider Internal Medicine Cardiovascular Disease | DX: R93.1 Abnormal findings on diagnostic imaging of heart and coronary circulation (principal); E05.00 Thyrotoxicosis with diffuse goiter without thyrotoxic crisis or storm; E78.00 Pure hypercholesterolemia, unspecified; K21.9 Gastro-esophageal reflux disease without esophagitis; R07.89 Other chest pain; Z79.82 Long term (current) use of aspirin | CPT/HCPCS: 99215 ==

== ENCOUNTER 2023-04-16 13:37 | Outpatient (CLI) | payer MEDICARE, OTHER, SELFPAY ==
[2023-04-16 14:06] LABS: Basophils % 0.5 %; Eosinophils # 0.2 10^3/uL (0.0-0.8); Eosinophils % 3.3 %; Hemoglobin 15.8 g/dL (11.7-16.6); Lymphocytes % 33.7 %; Mean Corpuscular HGB Conc 34.3 g/dL (30.0-36.0); Mean Corpuscular Volume 90.4 fl (80-94); Mean Platelet Volume 10.2 fL (7.4-10.4); Monocytes # 0.5 10^3/uL (0.2-0.9); Monocytes % 8.5 %; Neutrophils # 3.11 10^3/uL (1.8-7.7); Neutrophils % 53.8 %; Nucleated Red Blood Cells % 0 %; Platelet Count 182 10^3/cmm (130-400); Red Blood Count 5.09 10^6/uL (4.1-5.3); Red Cell Distribution Width 12.5 % (12.1-15.1); White Blood Count 5.8 10^3/uL (4.0-10.0)
[2023-04-16 14:20] LABS: INR 0.93 (0.83-1.21); Prothrombin Time (Patient) 12.8 Seconds (12.0-15.1)
[2023-04-16 14:26] LABS: Anion Gap 15.3 (5-19); Blood Urea Nitrogen 16 mg/dL (8-23); Calcium 9.5 mg/dL (8.5-10.5); Carbon Dioxide 26 mmol/L (22-29); Chloride 99 mmol/L (98-107); Glomerular Filtration Rate 96.7 mL/min (90-130); Glucose 104 mg/dL (65-115); Osmolality Calculated 283 mOsm/kg (285-295); Potassium 4.3 mmol/L (3.5-5.1); Sodium 136 mmol/L (136-145)
== END 2023-04-16 13:38 | disposition home or self-care (01) ==
PROVIDERS: PCP Emergency Medicine Emergency Medical Services; Visit Provider Internal Medicine Cardiovascular Disease
DX: R93.1 Abnormal findings on diagnostic imaging of heart and coronary circulation (principal); R07.9 Chest pain, unspecified; M95.0 Acquired deformity of nose; J34.89 Other specified disorders of nose and nasal sinuses
CPT/HCPCS: 36415; 80048; 85025; 85610; 86850; 86900; 99213

== ENCOUNTER 2023-04-16 16:38 | Observation (INO) | payer MEDICARE, OTHER, SELFPAY ==
[2023-04-16] VITALS (27 sets, daily range): BP systolic 117–145; BP diastolic 78–95; PULSE 64–127; RESP 15–24; TEMP 36.8; O2SAT 87–97; BMI 29.4
[2023-04-16] MEDS: carBAMazepine 200 mg Tablet 250 MG PO (17:19)
--- NOTE | 2023-04-16 17:31 | ED_ITS ---
HPI - General Adult General: Chief complaint: General Medical Stated complaint: mouth pain Time Seen by Provider: 04/16/23 17:31 History of Present Illness: 68-year-old comes in today with severe trigeminal neuralgia pain. Patient reports flareup started this morning with worsening discomfort. Patient has a history of trigeminal neuralgia but stopped taking medicine 3 to 4 years ago for it after it seemed to resolve after 1 year of use of carbamazepine. On exam patient was evaluated and had been given 500 mg of carbamazepine and reported some improvement in discomfort. Patient was having some chest discomfort and is presently being worked up for intermittent chest pain. Patient appears nontoxic. Patient appears in moderate pain at this time. Associated symptoms: Reports chest pain and dyspnea; Deny headache(s), nausea, rash or vomiting Review of Systems General: Reports: 10 or more systems reviewed and unremarkable except in HPI and below Const: Denies: fever(s) Eyes: Denies: change in vision ENMT: Reports: mouth pain Card: Reports: chest pain Resp: Reports: dyspnea GI: Denies: nausea or vomiting : Denies: difficulty urinating Musc: Reports: extremity pain Skin/Breast: Denies: rash Neuro: Denies: headache(s) PFSH ED PFSH: Medical History Cervical spine pain Colon polyps GERD (gastroesophageal reflux disease) GERD (gastroesophageal reflux disease) Graves disease Hypothyroidism Pure hypercholesterolemia Trigeminal neuralgia Surgical History H/O vasectomy History of subtotal thyroidectomy 1991 Family History Mother Cancer Brother Cancer Social History Smoking and tobacco status: never smoked Physical Exam Const: COMMON NORMALS: alert HENMT: COMMON NORMALS: normocephalic HEAD & SCALP: normocephalic MOUTH: Normal oral and palatal mucosa present Neck/C-Spine: COMMON NORMALS: full ROM CERVICAL SPINE: Yes cervical ROM no rmal and No Cervical spine tenderness Resp: COMMON NORMALS: normal respiratory effort and clear to auscultation bilaterally AUSCULTATION: clear to auscultation bilaterally Cardio: COMMON NORMALS: regular rate and regular rhythm RATE: regular rate RHYTHM: regular rhythm GI: COMMON NORMALS: Soft to palpation PALPATION: Yes Soft to palpation Back/Pelvis: COMMON NORMALS: thoracic and lumbar spine normal to inspection Extremity: COMMON NORMALS: full ROM Neuro: SENSORIUM/ORIENTATION: Yes alert Skin: COMMON NORMALS: turgor normal GENERAL SKIN EXAM: turgor normal Course ED course: 2104, patient second troponin increased from 8-21 with a delta curve of 13. Reviewed this with Dr. Orourke who recommended patient be admitted to observation for further evaluation and treatment by cardiology. Discussed with the patient who agreed to plan. Patient does have a history of coronary artery disease and is presently under the care of Dr. Matute. 2111, reviewed patient with Dr. Steele whom agreed to admission requested that we notify cardiology for further treatment. Bellperson Dr. Matute was consul douglas he agreed to plan to keep patient n.p.o. after midnight the plan for intervention in the morning with cath. Vital Signs: Vital signs: Vital Signs Temperature 98.3 F 04/16/23 16:42 Pulse Rate 75 04/16/23 21:13 Respiratory Rate 24 H 04/16/23 20:57 Blood Pressure 145/89 04/16/23 21:13 Pulse Oximetry 92 04/16/23 20:57 Oxygen Delivery Me thod Room Air 04/16/23 18:37 MDM - General Adult Medical Decision Making 68-year-old male patient came in today with a flare of his trigeminal neuralgia. Patient was treated with carbamazepine in the emergency department with improvement of symptoms. Patient also had some increased chest discomfort. On exam respirations were even lungs were clear to auscultation. Abdomen is soft and nontender. No edema is noted in the extremities. Vital signs are normal except for some elevation in pulse. Differential diagnosis includes anxiety, ACS, CHF, hypertension, exacerbation of chronic pain due to trigeminal neuralgia. Patient was treated for his trigeminal neuralgia due to the jaw pain with some relief of discomfort. CBC was unremarkable. CMP noted no significant abnormality. Troponin on the initial drawl was 8 but increased to 21 2 hours after with a delta COVID 13. Discussed this with Dr. Orourke who recommended we admit patient for further monitoring and observation. Patient does have a history of a stress test done in March that noted some abnormalities on review of the note and April [address] Matute's office. Discussion with Dr. Steele, she agreed to admission with notification of Dr. Matute for probable catheterization in the morning for further treatment. Dr. Matute was consulted and recommended Plavix and Lovenox and further monitoring he we discussed this with patient either this evening or first thing in the morning. Lab Data 04/16/23 18:01 04/16/23 18:01 Radiology Impressions Chest X-Ray 04/16/23 17:36 IMPRESSION: No acute findings. Laboratory Results WBC 7.0 10^3/uL (4.0-10.0) 04/16/23 18:01 RBC 5.24 10^6/uL (4.1-5.3) 04/16/23 18:01 Hgb 15.9 g/dL (11.7-16.6) 04/16/23 18:01 Hct 47.1 % (42.0-52.0) 04/16/23 18:01 MCV 89.9 fl (80-94) 04/16/23 18:01 MCH 30.3 pg (28.0-34.0) 04/16/23 18:01 MCHC 33.8 g/dL (30.0-36.0) 04/16/23 18:01 RDW 12.4 % (12.1-15.1) 04/16/23 18:01 Plt Count 182 10^3/cmm (130-400) 04/16/23 18:01 MPV 10.2 fL (7.4-10.4) 04/16/23 18:01 Neut % (Auto) 63.3 % 04/16/23 18:01 Lymph % (Auto) 26.6 % 04/16/23 18:01 [place] % (Auto) 7.1 % 04/16/23 18:01 Eos % (Auto) 2.3 % 04/16/23 18:01 Baso % (Auto) 0.3 % 04/16/23 18:01 Neut # (Auto) 4.43 10^3/uL (1.8-7.7) 04/16/23 18:01 Lymph # (Auto) 1.9 10^3/uL (0.8-4.8) 04/16/23 18:01 [place] # (Auto) 0.5 10^3/uL (0.2-0.9) 04/16/23 18:01 Eos # (Auto) 0.2 10^3/uL (0.0-0.8) 04/16/23 18:01 Baso # (Auto) 0.0 10^3/uL (0.0-0.1) 04/16/23 18:01 Nucleated RBC % (auto) 0 % 04/16/23 18: Nucleated RBCs # 0.0 /100WBC 04/16/23 18:01 Sodium 137 mmol/L (136-145) 04/16/23 18:01 Potassium 3.7 mmol/L (3.5-5.1) 04/16/23 18:01 Chloride 99 mmol/L (98-107) 04/16/23 18:01 Carbon Dioxide 23 mmol/L (22-29) 04/16/23 18:01 Anion Gap 18.7 (5-19) 04/16/23 18:01 BUN 17 mg/dL (8-23) 04/16/23 18:01 Creatinine 0.9 mg/dL (0.7-1.2) 04/16/23 18:01 GFR Calculation 84.4 mL/min (90-130) L 04/16/23 18:01 Glucose 96 mg/dL (65-115) 04/16/23 18:01 Calculated Osmolality 285 mOsm/kg (285-295) 04/16/23 18:01 Calcium 9.7 mg/dL (8.5-10.5) 04/16/23 18:01 Total Bilirubin 0.5 mg/dL (0.15-1.2) 04/16/23 18:01 AST 26 U/L (0-40) 04/16/23 18:01 ALT 21 U/L (0-41) 04/16/23 18:01 Alkaline Phosphatase 64 U/L (40-130) 04/16/23 18:01 Troponin T Baseline 8 ng/L (0-15) 04/16/23 18:01 Troponin T 120 Minute 21.89 ng/L (0-15) H 04/16/23 20:10 Delta Troponin T 13.89 ABS# (0-10) H* 04/16/23 20:10 NT-Pro-B Natriuret Pep 124 pg/mL (0-125) 04/16/23 18:01 Total Protein 7.5 g/dL (6.6-8.7) 04/16/23 18:01 Albumin 4.7 g/dL (3.5-5.2) 04/16/23 18:01 Globulin 2.8 g/dL (1.3-4.6) 04/16/23 18:01 EKG Data EKG 1: EKG interpretation date: 04/16/23 EKG interpretation time: 17:55 Interpretation: EKG shows a sinus rhythm with a regular rate at 97 bpm. No prior exam was available for comparison. No ST elevation is noted. No ectopy is noted. Computer reads a incomplete right bundle branch block, and a left anterior fascicular block. Computer generated interpretation: Chest X-Ray 04/16/23 17:36 IMPRESSION: No acute findings. EKG 2: EKG interpretation date: 04/16/23 EKG interpretation time: 20:24 Interpretation: EKG shows a sinus rhythm with a regular rate [address] elevation or ectopy is noted. No significant changes from prior exam done 2 hours prior. Computer generated interpretation: Chest X-Ray 04/16/23 17:36 IMPRESSION: No acute findings. Discharge Plan Discharge Clinical Impression: ACS (acute coronary syndrome) Condition: Stable Prescriptions: No Action omeprazole 20 mg capsule,delayed release(DR/EC) 20 mg PO BID PRN (Reason: Heartburn) sucralfate 1 gram tablet 1 gm PO DAILY PRN (Reason: unknown) qsbhkdc-hxih-lzjlr-oreg-capryl 100 mg-150 mg- 50 mg-150 mg capsule PO nitroglycerin 0.4 mg tablet, sublingual 0.4 mg sublingual Q5M PRN (Reason: chest pain) Qty: 30 3RF Rx Instructions: until response; do not exceed 3 doses per episode metoprolol tartrate 25 mg tablet 12.5 mg PO BID Qty: 30 5RF meloxicam 15 mg tablet 15 mg PO DAILY Qty: 30 0RF fluticasone propionate 50 mcg/actuation spray,suspension 2 spray intranasal DAILY 360 Days Qty: 16 11RF Rx Instructions: administer into each nostril meloxicam 15 mg tablet See Rx Instructions .ROUTE .COMPLEX Qty: 30 0RF Dose Instruction: TAKE ONE TABLET BY MOUTH DAILY Rx Instructions: TAKE ONE TABLET BY MOUTH DAILY Vitamin C 500 mg Tablet 2,000 mg PO QPM Nitrostat 0.4 mg Tablet, Sublingual 0.4 mg SUBLINGUAL Q5M PRN (Reason: Chest Pain) Rx Instructions: do not exceed 3 doses per episode Excedrin Migraine 250-250-65 mg Tablet 3 tab PO Q6H PRN (Reason: Migraine Headache) Vitamin D3 125 mcg (5,000 unit) Tablet 125 mcg PO QPM Vitamin B-12 1 tab PO QPM Miralax 17 gram/dose powder 17 g PO DAILY PRN (Reason: while taking oxycodone) Qty: 238 0RF Referrals: Epi Daniels DO [Primary Care Provider] - Coding Level of Care Code ED Technical Information Specialist for Sherri Canas
--- NOTE | 2023-04-16 17:36 | XRR_ITS ---
PROCEDURE INFORMATION: Exam: XR Chest Exam date and time: 04/16/2023 5:51 PM Age: 68 years old Clinical indication: Pain; Chest pressure; Additional info: Chest pain TECHNIQUE: Imaging protocol: Radiologic exam of the chest. Views: 1 view. COMPARISON: CR XR chest 1V portable [id number] 12/21/2022 2:13 PM FINDINGS: Lungs: Mild atelectasis in the left lung base. The right lung is clear. No consolidation. Possible emphysema. Pleural spaces: Unremarkable. No pleural effusion. No pneumothorax. Heart/Mediastinum: Unremarkable. No cardiomegaly. Bones/joints: Unremarkable. XR/XR chest 1V portable [id number] IMPRESSION: No acute findings.
--- NOTE | 2023-04-16 17:42 | ECG_ITS ---
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 Measurements Intervals [place] Rate: 97 P: 47 FL: 162 QRS: -59 QRSD: 97 T: 1 QT: 340 QTc: 434 Interpretive Statements SINUS RHYTHM PATTERN CONSISTENT WITH PULMONARY DISEASE INCOMPLETE RIGHT BUNDLE BRANCH BLOCK [90+ ms QRS DURATION, TERMINAL R IN V1/V2, 40+ ms S IN I/aVL/V4/V5/V6] LEFT ANTERIOR FASCICULAR BLOCK [QRS AXIS <= -45, QR IN I, RS IN II] VOLTAGE CRITERIA FOR LVH [MEETS CRITERIA IN ONE OF: R(aVL), S(V1), R(V5), R(V5/V6)+S(V1)] Compared to ECG 12/21/2022 15:48:28 Incomplete right bundle-branch block now present Left ventricular hypertrophy now present Electronically Signed On 04-16-2023 17:45:29 CDT by Nicolas Rodriguez M.D. [id number]
[2023-04-16 18:18] LABS: Basophils % 0.3 %; Eosinophils # 0.2 10^3/uL (0.0-0.8); Eosinophils % 2.3 %; Hematocrit 47.1 % (42.0-52.0); Hemoglobin 15.9 g/dL (11.7-16.6); Lymphocytes # 1.9 10^3/uL (0.8-4.8); Lymphocytes % 26.6 %; Mean Corpuscular HGB Conc 33.8 g/dL (30.0-36.0); Mean Corpuscular Hemoglobin 30.3 pg (28.0-34.0); Mean Corpuscular Volume 89.9 fl (80-94); Mean Platelet Volume 10.2 fL (7.4-10.4); Monocytes # 0.5 10^3/uL (0.2-0.9); Monocytes % 7.1 %; Neutrophils # 4.43 10^3/uL (1.8-7.7); Neutrophils % 63.3 %; Nucleated Red Blood Cells % 0 %; Platelet Count 182 10^3/cmm (130-400); Red Blood Count 5.24 10^6/uL (4.1-5.3); Red Cell Distribution Width 12.4 % (12.1-15.1)
[2023-04-16 19:32] LABS: Troponin(5th) Baseline 8 ng/L (0-15)
[2023-04-16 19:42] LABS: Alanine Aminotransferase 21 U/L (0-41); Anion Gap 18.7 (5-19); Aspartate Amino Transferase 26 U/L (0-40); Blood Urea Nitrogen 17 mg/dL (8-23); Calcium 9.7 mg/dL (8.5-10.5); Carbon Dioxide 23 mmol/L (22-29); Chloride 99 mmol/L (98-107); Glomerular Filtration Rate 84.4 mL/min (90-130); Glucose 96 mg/dL (65-115); NT Pro B Type Natriuretic Pept 124 pg/mL (0-125); Osmolality Calculated 285 mOsm/kg (285-295); Potassium 3.7 mmol/L (3.5-5.1); Sodium 137 mmol/L (136-145); Total Bilirubin 0.5 mg/dL (0.15-1.2); Total Protein 7.5 g/dL (6.6-8.7)
[2023-04-16 19:43] LABS: Albumin Level 4.7 g/dL (3.5-5.2); Alkaline Phosphatase 64 U/L (40-130); Globulin 2.8 g/dL (1.3-4.6)
--- NOTE | 2023-04-16 20:02 | ECG_ITS ---
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 Measurements Intervals [place] Rate: 81 P: 29 SD: 174 QRS: -45 QRSD: 106 T: 20 QT: 367 QTc: 428 Interpretive Statements SINUS RHYTHM WITH OCCASIONAL VENTRICULAR PREMATURE COMPLEXES PATTERN CONSISTENT WITH PULMONARY DISEASE LEFT ANTERIOR FASCICULAR BLOCK [QRS AXIS <= -45, QR IN I, RS IN II] Compared to ECG 04/16/2023 17:42:56 Ventricular premature complex(es) now present Incomplete right bundle-branch block no longer present Left ventricular hypertrophy no longer present Electronically Signed On 04-16-2023 22:43:03 CDT by Nicolas Rodriguez M.D. [id number]
[2023-04-16 20:55] LABS: Troponin 5 2HR 21.89 ng/L (0-15)
[2023-04-16 20:56] LABS: Troponin 5 2HR Delta 13.89 ABS# (0-10)
[2023-04-16] MEDS: nitroglycerin 1 gm/inch oint Pkt 1 INCH TOPICAL (21:13)
[2023-04-16] MEDS: enoxaparin 100 mg/mL Syringe 90 MG SUBCUT (21:13)
[2023-04-16] MEDS: aspirin 81 mg Chew Tablet 162 MG PO (21:14)
[2023-04-16] MEDS: clopidogrel 300 mg Tablet PO (21:19)
[2023-04-16] MEDS: ondansetron 2 mg/ML SDV 2 mL 4 MG IVP (21:50)
--- NOTE | 2023-04-16 23:04 | P.HP_ITS ---
Providers/Chief Complaint Admitting Physician: Karine Steele MD Primary Care Provider: Epi Daniels DO Chief Complaint: mouth pain History of Present Illness Kevin Moreland is a 68 year old male with a past medical history of hypertension, dyslipidemia, GERD, trigeminal neuralgia presenting to the emergency room today with complaints of jaw pain.Initial concern for trigeminal neuralgia for which he received carbazepine in the RE with no improvement. Review of records shows that patient has been complaining of intermittent exertional chest pain on and off for the past 2 months. He recently underwent a stress test which showed an area of reversibility suggesting ischemia in the distribution of the left circumflex artery. Patient had continued to report persisting dyspnea and chest discomfort on his visit with cardiology on April 10, 2023 and was being planned for a cardiac cath as outpatient. He presented to the ER today with complaints of jaw pain and also intermittent chest discomfort. Troponin series was obtained which showed a baseline troponin of 8, increasing to 21 at 2 hours with a delta of 13. His EKG obtained today shows sinus rhythm with occasional VPCs. No acute ST-T wave changes. With ongoing chest pain, elevated troponins and recently abnormal stress test overall concern for NSTEMI for which I requested cardiology be consulted to assess for angiogram Review of Systems General: Reports: 10 or more systems reviewed and unremarkable except in HPI and below Const: Denies: fever(s), chills or body aches Eyes: Denies: change in vision, blurry vision or photophobia ENMT: Reports: hoarseness; Denies: throat pain, enlarged tonsils, odynophagia or nasal congestion Card: Denies: chest pain, palpitations, irregular heart rhythm, edema, swe lling of feet/ankles, lightheadedness, pre-syncope, dyspnea on exertion or orthopnea Resp: Denies: dyspnea, productive cough, non-productive cough, wheezing, stridor, pain on inspiration, change in phlegm color, hemoptysis or chest congestion GI: Denies: abdominal pain, nausea, vomiting, hematemesis, coffee ground emesis, dysphagia, heartburn, diarrhea, constipation, GI cramping, change in stool character, hematochezia or melena : Denies: flank pain, dysuria, urinary frequency, urinary urgency, urinary hesitancy or hematuria Musc: Denies: neck pain, back pain, extremity pain, joint swelling, joint warmth or deformity Neuro: Denies: headache(s), numbness in extremities, weakness in extremities, sensory changes, difficulty walking, frequent falls, dizziness, vertigo, behavioral changes, Slurred speech present or seizure-like activity Psych: Denies: anxiety, depression, suicidal ideation or homicidal ideation Endo: Denies: polyuria, polydipsia, tired all the time, cold intolerance or hot flashes Choco/Lymph: Denies: easy bruising or easy bleeding Medications/Allergies Home Medications Medication Instructions Recorded Confirmed Last Taken Type omeprazole 20 mg capsule,delayed 20 mg PO BID PRN Heartburn 02/03/20 04/16/23 Unknown History release sucralfate 1 gram tablet 1 gm PO DAILY PRN unknown 02/03/20 04/16/23 Unknown History Vitamin B-12 1 tab PO QPM 01/21/22 04/16/23 Unknown History ascorbic acid (vitamin C) 500 mg 2,000 mg PO QPM 01/21/22 04/16/23 01/20/22 History tablet (Vitamin C) yxvemum-ubckpktdlkfcb-zdiiziup 250 3 tab PO Q6H PRN Migraine Headache 01/21/22 04/16/23 Unknown History mg-250 mg-65 mg tablet (Excedrin Migraine) cholecalciferol (vitamin D3) 125 125 mcg PO QPM 01/21/22 04/16/23 01/20/22 History mcg (5,000 unit) tablet (Vitamin D3) nitroglycerin 0.4 mg sublingual 0.4 mg sublingual Q5M PRN Chest 01/21/22 04/16/23 Unknown History tablet (Nitrostat) Pain polyethylene glycol 3350 17 17 g PO DAILY PRN while taking 01/21/22 04/16/23 Unknown Rx gram/dose oral powder (Miralax) oxycodone #238 grams meloxicam 15 mg tablet 15 mg PO DAILY #30 tabs 10/14/22 04/16/23 Unknown Rx fluticasone propionate 50 2 spray intranasal DAILY 12 months 10/22/22 04/16/23 Unknown Rx mcg/actuation nasal #16 grams spray,suspension nitroglycerin 0.4 mg sublingual 0.4 mg sublingual Q5M PRN chest 02/03/23 04/16/23 Unknown Rx tablet pain #30 tabs tumeric 100 mg-yuli 150 mg-olive cap PO 02/03/23 04/16/23 Unknown History 50 mg-oreg 150 mg-caprylate capsule meloxicam 15 mg tablet See Rx Instructions .Route 03/11/23 04/16/23 Unknown Rx .COMPLEX #30 tabs metoprolol tartrate 25 mg tablet 12.5 mg PO BID #30 tabs 04/10/23 04/16/23 Unknown Rx Allergies Allergy/AdvReac Type Severity Reaction Status Date / Time No Known Allergies Allergy Verified 04/16/23 13:18 PFSH Acute PFSH: Medical History Cervical spine pain Colon polyps GERD (gastroesophageal reflux disease) GERD (gastroesophageal reflux disease) Graves disease Hypothyroidism Pure hypercholesterolemia Trigeminal neuralgia Surgical History H/O vasectomy History of subtotal thyroidectomy 1991 Family History Mother Cancer Brother Cancer Social History Smoking and tobacco status: never smoked Vitals/I&O/Wt Last Vital Signs Temp 98.3 F 04/16/23 16:42 Pulse 90 04/16/23 21:47 Resp 15 04/16/23 21:47 BP 145/78 04/16/23 21:47 Pulse Ox 90 04/16/23 21:47 O2 Del Method Room Air 04/16/23 21:45 Weight last 48 hrs Weight 92.986 kg Physical Exam Narrative: General: No acute distress, AO x3 HEENT: PERRLA, pupils bilaterally equal and reactive, pallors not present Chest: Normal vesicular breath sounds, no added sounds, equal good air entry bilaterally CVS: S1-S2 regular, no murmurs, no tachycardia, no gallops, no rubs Abdomen: Soft, nontender, no organomegaly, bowel sounds present Neuro: No focal deficits, no facial deformity, AO x3, power 5/5 in all limbs Data 04/16/23 18:01 04/16/23 18:01 Other data: [address] [address] Nuclear Medicine Report Signed Patient: Kevin Moreland Unit #: [id number] : 1955 Age/Sex: 68 / M ADM Date: 03/18/23 Loc: CD Room/Bed: Attending Dr: Graciela Matute MD Ordering Provider/Ordering MD: Graciela Matute MD Date of Service: 03/18/23 Procedure(s): NM pavel perf SPECT r/s* [id number] Accession Number(s): [id number] Report Number: [id number] ?NM pavel perf SPECT r/s* [id number] ?Kevin Moreland ?Age:? ? 68 ? ? Gender: ? ? M ?:? ? 1955 ?Exam Date: ? ? 03/18/2023 07:56 ?Ordering Phys: ? ? Graciela Matute ? Era MANZANO ? ([email or web address]) ?Technologist:? ? ? Juhi Paz, ? SCHOOL BUSINESS ADMINISTRATOR ?Exam Location:? ? ? [facility] ?MRN:? ? [id number] ?Account Number: ? ? ? [id number] ?Indications:? ? ? CORONARY ANGIOPLASTY STATUS ?STRESS TEST ?Please see separate stress test report in [facility] for full findings ?IMAGE PROTOCOL? ? ? Rest/Stress 1? Exercise ? Day ? Radiopharmaceutical ? Dose (mCi) ? Administration Site ? ? ? Administered by ?Rest:? Tc-99m? 10.8 ? IV? THUAN Boggs ? Sestamibi ?Stress:Tc-99m? 33.0 ? IV? THUAN Boggs ? Sestamibi ?Rest:? ? 18-Mar-2023 ? 60 ? Discovery 630 ?Stress: ? ? 18-Mar-2023? 30 ? Discovery 630 ?Radiopharmaceutical was injected at 92 % maximum heart rate.? Images obtained ?in supine and prone position. ?SPECT RESULTS ?Technical Quality: ? ? ? Excellent ?Raw Data Analysis:? ? ? Normal ?Image Corrections:? ? ? No attenuation or motion correction applied ?Summed Stress Score:? 6 ?Summed Rest Score: ? ? ? 1 ?Summed Difference Score: ? 5 ?PERFUSION FINDINGS ?Moderate area of minimal to moderately decreased tracer uptake in the mid ?anterolateral, inferolateral, inferior and apical lateral wall segments.? ?Significant reversibility was noted in these regions. ?FUNCTIONAL RESULTS ? ? (calculated via Gated SPECT) ? Stress Image LV EF (%):? ? 72 ? Stress EDV (mL):98 ? TID:? 0.86 ? Stress ESV (mL):27 ?FUNCTIONAL FINDINGS: ?Segmental wall motion analysis revealing no gross wall motion abnormalities ?IMPRESSIONS ?1.? Myocardial perfusion imaging revealing moderate area of minimal to ?moderately decreased tracer uptake in the anterolateral, inferolateral, ?inferior and apical lateral regions with significant reversibility suggesting ?ischemia in the distribution of the circumflex artery. ?2.? Normal LV ejection fraction 72%. ?3.? LV wall motion analysis revealing no gross wall motion abnormalities. ?4.? Normal LV volume ?Compared to the study from 01/07/2020, the area of ischemia appears to be new A&P Assessment and plan (1) NSTEMI (non-ST elevated myocardial infarction): Patient presenting today with chest and jaw pain acutely worsened today. EKG without acute ST-T wave changes Baseline troponin at 8, trending up at 21 with a delta of 13 at 2 hours Continue to trend at 6 hours Recently positive stress test on March 18, 2023 which showed minimal to moderately decreased tracer uptake in the anterolateral, inferolateral inferior and apical lateral regions with significant reversibility suggesting ischemia in the left circumflex artery territory. With these findings, ongoing chest pain, uptrending troponin and overall clinical impression that of NSTEMI Start Lovenox 1 mg/kg every 12 hours, aspirin 81 mg daily. He has received 162 mg aspirin and 300 mg Plavix in the ER Start also atorvastatin 40 mg daily Continue metoprolol 12.5 mg twice daily at home dosing Nitro patch and as needed morphine for pain. Echocardiogram Cardiology consult for possible cardiac cath in a.m. Keep n.p.o. postmidnight Check HbA1c and lipid panel Attestations Medical Necessity Statement*: Anticipate greater than 2 midnight admission for above defined care, NSTEMI, possible cardiac cath Coding Level of Care Code Acute Code for Chg Fwd High MDM includes number and complexity of problems actively addressed during encounter, amount and/or complexity of data reviewed/ordered and described risk of complication, morbidity or mortality of management as documented Diagnoses NSTEMI (non-ST elevated myocardial infarction) I21.4
[2023-04-16] MEDS: nitroglycerin 1 gm/inch oint Pkt 0.5 INCH TOPICAL (23:44)
[2023-04-16] MEDS: atorvastatin 40 mg Tablet PO (23:46)
[2023-04-16] MEDS: acetaminophen 325 mg Tablet 650 MG PO (23:46)
--- NOTE | 2023-04-16 23:48 | ECG_ITS ---
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 Measurements Intervals [place] Rate: 92 P: 46 UT: 153 QRS: -70 QRSD: 102 T: 42 QT: 369 QTc: 458 Interpretive Statements SINUS RHYTHM LEFT AXIS DEVIATION [QRS AXIS < -30] PATTERN CONSISTENT WITH PULMONARY DISEASE Compared to ECG 04/16/2023 20:02:56 Left-axis deviation now present Ventricular premature complex(es) no longer present Left anterior fascicular block no longer present Electronically Signed On 04-19-2023 6:57:41 CDT by Nina Fabian M.D. [id number]
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
[2023-04-17] VITALS (151 sets, daily range): BP systolic 101–128; BP diastolic 64–85; PULSE 53–97; RESP 3–28; TEMP 36.6–37; O2SAT 88–95
[2023-04-17 00:12] LABS: Chol HDL Ratio 3.85 mg/dL (1.0-5.00); Cholesterol 235 mg/dL (0-200); HDL Cholesterol 61 mg/dL (60-100); LDL Cholesterol Calculated 151 mg/dL (50-129); LDL HDL Ratio 2.48 RATIO (0.00-3.22); Triglycerides 114 mg/dL (0-150)
[2023-04-17 00:19] LABS: Estmated Average Glucose 126
[2023-04-17] MEDS: aspirin 325 mg Tablet PO (00:30)
[2023-04-17 01:44] LABS: Troponin 5 6HR 16.96 ng/L (0-15)
[2023-04-17 01:46] LABS: Troponin 5 6HR Delta 8.96 ng/L (0-12)
[2023-04-17] MEDS: diphenhydrAMINE 50 mg Capsule PO (08:22)
--- NOTE | 2023-04-17 08:26 | P.PN_ITS ---
Subjective Subjective: Patient is feeling okay with no recurrence of chest pain. No shortness of breath. The vital signs are stable. Medications: Medication Review Details: Current Medications Acetaminophen (Acetaminophen 325 Mg Tablet) 650 mg PO Q6H PRN PRN Reason: Mild/Mod Pain Or Temp >/= 101 Last Admin: 04/16/23 23:46 Dose: 650 mg Atorvastatin Calcium (Atorvastatin 40 Mg Tablet) 40 mg PO BEDTIME [facility] Last Admin: 04/16/23 23:46 Dose: 40 mg Enoxaparin Sodium (Enoxaparin 100 Mg/Ml Syringe) 90 mg SUBCUT Q12H [facility] Sodium Chloride (Sodium Chloride 0.9%) 1,000 mls @ 50 mls/hr IV .Q20H ONE Stop: 04/18/23 03:29 Metoprolol Tartrate (Metoprolol Tartrate 25 Mg Tablet) 12.5 mg PO BID [facility] Morphine Sulfate (Morphine 4 Mg/Ml Sdv 1 Ml) 2 mg IVP Q4H PRN PRN Reason: SEVERE PAIN Naloxone HCl (Naloxone 0.4 Mg/Ml Sdv) 0.1 mg IVP Q2M PRN PRN Reason: OPIATERV Nitroglycerin (Nitroglycerin 1 Gm/Inch Oint Pkt) 0.5 inch TOPICAL Q6H [facility] Last Admin: 04/17/23 08:21 Dose: Not Given Ondansetron HCl (Ondansetron 2 Mg/Ml Sdv 2 Ml) 4 mg IVP Q8H PRN PRN Reason: vomiting, or N/V if npo Pantoprazole Sodium (Pantoprazole Dr 40 Mg Tablet) 40 mg PO DAILY [facility] Pneumococcal Polyvalent Vaccine (Pneumococcal (23 Valent) Sdv 0.5 Ml) 0.5 ml IM .ONCE ONE Stop: 04/17/23 10:01 Vitals/I&O/Wt Last Vital Signs Temp 97.8 F 04/17/23 08:00 Pulse 57 L 04/17/23 08:15 Resp 19 H 04/17/23 08:15 BP 102/64 04/17/23 08:15 Pulse Ox 92 04/17/23 08:15 O2 Del Method Nasal Cannula 04/17/23 03:50 O2 Flow Rate 2 04/16/23 23:10 Weight last 48 hrs Weight 205 lb Physical Exam Narrative: GENERAL: The patient is alert and oriented times three. Not in any acute distress. HEENT: No significant pallor, icterus or lymphadenopathy.Oral cavity: There are no mucous membrane lesions. NECK: Trachea appears to be central. No masses noted. No JVD or thyromegaly appreciated. RESPIRATORY: Chest is symmetrical. No intercostals muscle retraction or any accessory muscle activation. There is no chest wall tenderness. Breath sounds are heard bilaterally. No rales or rhonchi heard. No evidence of any consolidation. BREASTS: Deferred. HEART: The heart sounds are normal. No S3 or S4. No significant murmurs. No pericardial rub ABDOMEN: No vessel pulsations or distention. No tenderness. No organomegaly appreciated. Bowel sounds are normally heard. : Deferred. RECTAL: Deferred. LYMPHATIC: No lymphadenopathy noted in the neck. EXTREMITIES: No edema or cyanosis. No clubbing. MUSCULOSKELETAL: No acute joint deformities or swelling SKIN: There are no significant rashes or ecchymosis NEUROPSYCHIATRIC: The patient is alert and oriented x3. Appears to be in a good mood. No tremors or rigidity noted. Data 04/16/23 18:01 04/16/23 18:01 Other Labs: Laboratory Last Values WBC 7.0 10^3/uL (4.0-10.0) 04/16/23 18:01 RBC 5.24 10^6/uL (4.1-5.3) 04/16/23 18:01 Hgb 15.9 g/dL (11.7-16.6) 04/16/23 18:01 Hct 47.1 % (42.0-52.0) 04/16/23 18: MCV 89.9 fl (80-94) 04/16/23 18:01 MCH 30.3 pg (28.0-34.0) 04/16/23 18:01 MCHC 33.8 g/dL (30.0-36.0) 04/16/23 18:01 RDW 12.4 % (12.1-15.1) 04/16/23 18:01 Plt Count 182 10^3/cmm (130-400) 04/16/23 18:01 MPV 10.2 fL (7.4-10.4) 04/16/23 18:01 Neut % (Auto) 63.3 % 04/16/23 18:01 Lymph % (Auto) 26.6 % 04/16/23 18:01 Desha % (Auto) 7.1 % 04/16/23 18:01 Eos % (Auto) 2.3 % 04/16/23 18:01 Baso % (Auto) 0.3 % 04/16/23 18:01 Neut # (Auto) 4.43 10^3/uL (1.8-7.7) 04/16/23 18:01 Lymph # (Auto) 1.9 10^3/uL (0.8-4.8) 04/16/23 18:01 Desha # (Auto) 0.5 10^3/uL (0.2-0.9) 04/16/23 18:01 Eos # (Auto) 0.2 10^3/uL (0.0-0.8) 04/16/23 18:01 Baso # (Auto) 0.0 10^3/uL (0.0-0.1) 04/16/23 18:01 Nucleated RBC % (auto) 0 % 04/16/23 18:01 Nucleated RBCs # 0.0 /100WBC 04/16/23 18:01 Sodium 137 mmol/L (136-145) 04/16/23 18:01 Potassium 3.7 mmol/L (3.5-5.1) 04/16/23 18:01 Chloride 99 mmol/L (98-107) 04/16/23 18:01 Carbon Dioxide 23 mmol/L (22-29) 04/16/23 18:01 Anion Gap 18.7 (5-19) 04/16/23 18:01 BUN 17 mg/dL (8-23) 04/16/23 18:01 Creatinine 0.9 mg/dL (0.7-1.2) 04/16/23 18:01 GFR Calculation 84.4 mL/min (90-130) L 04/16/23 18:01 Glucose 96 mg/dL (65-115) 04/16/23 18:01 Estimat Average Glucose 126 04/16/23 18:01 Hemoglobin A1c 6.0 % (4.0-6.0) 04/16/23 18:01 Calculated Osmolality 285 mOsm/kg (285-295) 04/16/23 18:01 Calcium 9.7 mg/dL (8.5-10.5) 04/16/23 18:01 Total Bilirubin 0.5 mg/dL (0.15-1.2) 04/16/23 18:01 AST 26 U/L (0-40) 04/16/23 18:01 ALT 21 U/L (0-41) 04/16/23 18:01 Alkaline Phosphatase 64 U/L (40-130) 04/16/23 18:01 Troponin T Baseline 8 ng/L (0-15) 04/16/23 18:01 Troponin T 120 Minute 21.89 ng/L (0-15) H 04/16/23 20:10 Delta Troponin T 13.89 ABS# (0-10) H* 04/16/23 20:10 Troponin T Hi Sens 6Hr 16.96 ng/L (0-15) H 04/17/23 01:00 Troponin T Hi Sens 6Hr Delta 8.96 ng/L (0-12) 04/17/23 01:00 NT-Pro-B Natriuret Pep 124 pg/mL (0-125) 04/16/23 18:01 Total Protein 7.5 g/dL (6.6-8.7) 04/16/23 18:01 Albumin 4.7 g/dL (3.5-5.2) 04/16/23 18:01 Globulin 2.8 g/dL (1.3-4.6) 04/16/23 18:01 Triglycerides 114 mg/dL (0-150) 04/16/23 18:01 Cholesterol 235 mg/dL (0-200) H 04/16/23 18:01 LDL Cholesterol, Calc 151 mg/dL (50-129) H 04/16/23 18:01 HDL Cholesterol 61 mg/dL (60-100) 04/16/23 18:01 LDL/HDL Ratio 2.48 RATIO (0.00-3.22) 04/16/23 18:01 Cholesterol/HDL Ratio 3.85 mg/dL (1.0-5.00) 04/16/23 18:01 A&P Assessment and plan (1) Abnormal nuclear cardiac imaging test: The Myocardial perfusion imaging is suggestive of ischemia in the distribution of the left circumflex artery. In order to further evaluate the coronary status, a cardiac catheterization would be appropriate. The risk and benefits were discussed the patient. The risk of bleeding, hematoma, vascular injury, myocardial infarction, myocardial perforation, malignant cardiac arrhythmias ,CVA, renal failure and other concomitant complications were explained in detail. Patient understood this well and consented to proceed. We will planning to have the cardiac catheterization this morning. (2) Chest pain at rest: Patient's symptoms are somewhat atypical. However in view of the clinical presentation and elevated troponin T, he has features of an acute non-ST elevation myocardial infarction. Symptoms are significant delta in 2-hour and 6-hour. Patient may treat with a subcu Lovenox, p.o. aspirin, Plavix, beta- ricky and statin drug. (3) Hypothyroidism: Clinically euthyroid. May continue on the current medications. (4) SOB (shortness of breath): This could be multifactorial. LV dysfunction, overweight are considerations. (5) Dyslipidemia: Patient may be started on the Lipitor. Plan Based on the results of the above tests and the patient's clinical progress, further recommendations will be made. Scheduled for the cardiac catheterization today. Attestations Medical Necessity Statement*: Patient requires continued hospital stay for close monitoring and further management. Coding Level of Care Code Acute Code for Chg Fwd Diagnoses Abnormal nuclear cardiac imaging test R93.1 Chest pain at rest R07.9 Hypothyroidism E03.9 SOB (shortness of breath) R06.02 Dyslipidemia E78.5
--- NOTE | 2023-04-17 08:27 | P.HPUD_ITS ---
Surgery/Procedure H&P Update DATE OF PROCEDURE: April 17, 2023 DATE H&P PERFORMED: 04/16/23 H&P UPDATE INFORMATION: I have reviewed H&P completed within last 30 days and I have examined patient prior to procedure PREOP DIAGNOSIS: ASHD/NSTEMI PRIMARY INDICATION FOR PROCEDURE: NSTEMI/ Recent positive stress test PLANNED PROCEDURE: Operation Date: 04/17/23 10:00 Proposed Procedures p Cardiac Catheterization(Left) - Graciela Matute MD PATIENT REASSESSED PRIOR TO SEDATION, WITH NO CHANGE NOTED: Yes PHYSICAL EXAM: alert, oriented x 3 and regular rate & rhythm AIRWAY EVAL/ANESTHESIA PLAN: normal airway, see other exam findings, ASA III, Mo nitored Anesthesia, Local Anesthesia, Risks, benefits & alternatives of sedation and/or procedure discussed and Patient agrees to continue as planned
--- NOTE | 2023-04-17 08:30 | XACV_ITS ---
Exam Room: [facility] Ht: 178 cm Wt: 93 kg BSA: 2.17 m2 Gender: Male : 1955 Any Known Allergies: No known allergies Exam Priority: Routine Procedure(s): Procedure Description: Diagnostic procedure Procedure Description: Left Heart Catheterization Procedure Description: Left ventriculography Procedure Description: Coronary Angiography Diagnostic Cath Status: Urgent Diagnostic Findings * The left main is a medium caliber vessel with no significant stenotic lesions. * The left anterior descending artery is a medium caliber vessel which appears to wrap around the LV apex. The proximal left anterior descending artery was found to have around 20 to 30% irregular narrowing. No other Significant as lesions were noted. * The left circumflex artery is a medium to large caliber dominant vessel with no significant obstructive lesions. * The intermedius artery is a high diagonal branch, found to have around 30 to 40% narrowing in the proximal segment, including the ostium. * The right coronary artery disease relatively small caliber nondominant vessel with no significant stenotic lesions. * The LV gram was performed in DOMINGUEZ projection. Conclusions 1. 68-year-old white male with multiple risk factors for coronary artery disease, was admitted to hospital with features of a non-ST elevation myocardial infarction. He had a positive stress test recently. Patient underwent left heart catheterization with a left and right coronary angiogram and LV angiogram today. The findings are as follows. 2. 1. Mild coronary artery disease. 2. Left dominant coronary circulation. 3. The LV gram revealed mild diffuse hypokinesia of the mid and apical anterior wall segments. LVEDP of 14 mmHg. LV ejection fraction of 50%. 3. These features may suggest a variant of Takotsubo syndrome. Diagnostic RX Recommendation: medical therapy and/or counseling LV EDP: 14 mmHg Ventriculography Ejection Fraction: 50.0 % Left Ventriculography Findings: * The LV gram was performed in the DOMINGUEZ projection. LV cavity appeared to be of normal size. There is mild diffuse hypokinesia of the mid and apical anterior wall segments. No mitral valve prolapse or any significant mitral regurgitation. No filling defects were noted.. Pressures Phase:Rest AO : 112 / 92 ( 81 ) @ 10:08:00 AM 136 / 47 ( 76 ) @ 10:19:00 AM LV : 140 / -5 / 14 @ 10:18:00 AM 137 / 0 / 27 @ 10:19:00 AM Clinical Evaluation EBL: 5mL-10mL Procedural Details Procedure Consent Obtained. Pre-Procedure Time Out. Identified patient by full name and date of as verbalized by the patient/guarantor. Does the consent match the physician's order: Yes. Accurate & Complete Informed Consent: Yes. Inpatient/Outpatient History & Physical on Chart: Yes. If H&P is completed, is and addenduem needed: No; If yes, is the addendum complete: N/A. Visualize and Verify Site with Patient/Guarantor: N/A. Relevant Radiology Images available: N/A. Pre-op teaching completed and patient verbalized understanding. The risks, benefits, and alternatives of sedation and/or procedure were discussed by physician. The patient agrees to continue. Procedure started. [facility] Clinical Fraility Score: 4: Vulnerable. Court Orderly Indications: ACS > 24 hours. Chest Pain Symptom Assessment: Atypical Angina. Cardiovascular Instability: No. Correct patient, site and procedure confirmed by cath team. PERRLA. Strong, equal hand dbas bilaterally. Lungs clear x 5 lobes. Pre Procedural Pulses: right radial was 3+. IV Site on Arrival: 20 gauge in the left forearm. IV Fluids: 0.9% NaCl at KVO. 0 mL infused prior to label designer. Physician arrived. Oxygen started at 2liters/min via nasal canula. right groin was prepped with chloroprep then draped in the usual sterile fashion. right radial was prepped with chloroprep then draped in the usual sterile fashion. Equipment: 6F - Radial. Cardiac Cath Pack. ACIST Manifold Kit Model BT 2000. Heparinized Saline (2 units/mL), 1000 mL bag. Baseline sample Acquired. HR: 54 BPM. Physician scrubbed in. Immediate Pre-Procedure Time Out. Correct Patient: Yes; Correct Procedure: Yes; Correct Site: Yes; Correct Patient Position: Yes; Correct Supplies: Yes; Dried Flammable Prep: Yes; Blood Products Available: N/A;. Lidocaine 1% infiltrated to the right radial. Arterial access obtained. A 5 libyan Ramon catheter in over wire. Multiple views taken of left coronary artery. Catheter redirected to the RCA. Catheter removed over the exchange wire. A 5 libyan JR4 catheter in over wire. Multiple views taken of right coronary artery. Catheter removed over the exchange wire. A 5 libyan Angled Pig catheter in over wire. EDP Sample taken: LV 140/-6,14; HR: 66 BPM; SpO2: 94%. LV gram performed in DOMINGUEZ @ 10 mL/second for a total of 30 mL. EDP Sample taken: LV 137/-1,27; HR: 36 BPM; SpO2: 92%. Pullback taken: LV Off; AO Off; Mean: , Peak to Peak: , SEP: ; HR: 63 BPM; SpO2: 92%. Catheter removed over the exchange wire. Physician scrubbed out. A TR Band was successful obtaining hemostatsis at the Right Radial artery insertion site. TR band placed. Hemostasis obtained. Post Procedure: Pulses reassessed and unchanged. PERRLA. Strong, equal hand dbas bilaterally. No VTE prophylaxis required. Medication's Wasted: Lidocaine 1% = 2 mL. Medication's Wasted: Nitro = 49.9 mg. Medication's Wasted: Heparin = 1000 units. Medication's Wasted: Other = fentanyl 50 mcg. Total IV fluids: 265 mL. Contrast type used: Omnipaque 300 mgI/mL, 500 mL bottle. Post-op diagnosis: takotsubo. Complications: none. Estimated blood loss: 5mL-10mL. Responsiveness - Normal response to verbal stimuli; alert and oriented, PERRLA. Airway - Unaffected, no intervention required; spontaneous ventilation. Circulation: W/N/L, pulses unchanged. Nausea/Vomiting: No. Procedure completed. Patient transferred by bed to 1st floor. Vital chart was stopped. Access Site Site: Right Radial artery Sheath Size: 6 Fr Hemostasis Method: TR Band Hemostasis Success: Successful Procedure Medications Start: 8:55 AM Stop: 8:55 AM Medication: Versed Amount: 1 mg Route: I.V. Start: 8:55 AM Stop: 8:55 AM Medication: Fentanyl Amount: 50 mcg Route: I.V. Start: 8:59 AM Stop: 8:59 AM Medication: Versed Amount: 1 mg Route: I.V. Start: 9:05 AM Stop: 9:05 AM Medication: Verapamil Amount: 5 mg Route: I.A. Start: 9:06 AM Stop: 9:06 AM Medication: 0.9% Saline Amount: 250 ml Route: I.V. bolus Start: 9:07 AM Stop: 9:07 AM Medication: Heparin Amount: 5000 units Route: I.V. Start: 9:15 AM Stop: 9:15 AM Medication: Nitrogylcerin Amount: 100 mcg Route: I.A. I, the attending physician, have reviewed and verified all procedure medications. Yes, all medications given per verbal order History/Risk Factors Hypertension: Yes Dyslipidemia: Yes Peripheral Arterial Disease (PAD): No Myocardial Infarction (CO): No Obesity: No Renal Disease: No Tobacco Use: Never Prior Interventions PCI: No CABG: No Valve Surgery: No Report Signatures Finalized by Dr Graciela Matute MD [facility] on 04/17/2023 04:35 PM
[2023-04-17] MEDS: sodium chloride 0.9% 1,000 ML 50 ML IV (08:32)
--- NOTE | 2023-04-17 09:56 | PC.NURSE ---
Patient left for cath alb at 0836am. Benadryl given.
[2023-04-17] MEDS: metoprolol tartrate 25 mg Tablet 12.5 MG PO (10:00)
[2023-04-17] MEDS: pantoprazole DR 40 mg Tablet PO (10:01)
[2023-04-17] MEDS: carBAMazepine 200 mg Tablet 250 MG PO (11:13)
--- NOTE | 2023-04-17 12:01 | PC.NURSE ---
Patient returned from clinical lab clerk at 0933 with 2 TR-Bands.
--- NOTE | 2023-04-17 15:03 | PC.NURSE ---
Patient returned to CSU from supervisor laboratory at 0933. He had two TR-Bands on his right wrist. Air removal started at 1050. !ml of air is removed from both TR-bands at 1050. 2ml's of air removed from both bands at 1115. 2ml's of air removed from both bands at 1130. 2ml's of air removed from both bands at 1150. 2ml's of air removed from both bands at 1220. 2ml's of air removed from both bands at 1237. 2ml's of air removed from both bands at 1305. Proximal band is removed and 2ml's of air removed from remaining band at 1317. Remaining band is removed at 1335. No bleeding is noted. Dressing is applied.
--- NOTE | 2023-04-17 23:09 | USCV_ITS ---
Kevin Moreland Age: 68 Gender: M : 1955 Exam Date: 04/17/2023 01:40 Ordering Phys: Karine Steele MD Technologist: BERTRAM [place] [facility] [place] Indication: NSTEMI. No history of cardiac intervention per patient. BP: 117 / 84 HR: 60 Rhythm: Sinus Technical Quality: Adequate MEASUREMENTS (Male / Female) Normal Values 2D ECHO LV Diastolic Diameter PLAX 4.2 cm 4.2 - 5.9 / 3.9 - 5.3 cm LV Systolic Diameter PLAX 2.7 cm IVS Diastolic Thickness 1.5 cm 0.6 - 1.0 / 0.6 - 0.9 cm IVS Systolic Thickness 2.0 cm LVPW Diastolic Thickness 1.3 cm 0.6 - 1.0 / 0.6 - 0.9 cm LVPW Systolic Thickness 1.4 cm LVOT Diameter 1.9 cm LV Ejection Fraction 2D Teich 65.8 % LV Ejection Fraction MOD 2C 61.9 % LV Ejection Fraction 2C AL 59.6 % LA Diameter 3.8 cm LA Width 2.7 cm LA Height 5.0 cm RA Width 3.6 cm RA Height 4.5 cm Aorta at Sinotubular Diameter 2.9 cm IVC Diameter 1.7 cm M-MODE Aortic Annulus Diameter 3.0 cm LA Ao Ratio MM 1.2 MV E Point Septal Separation 0.6 cm DOPPLER AV Peak Velocity 100.0 cm/s LVOT Peak Velocity 59.0 cm/s AV Area Cont Eq vti 1.6 cm squared AV Area Cont Eq pk 1.7 cm squared MV Area PHT 2.1 cm squared Mitral E to A Ratio 0.5 MV E' Velocity 21.0 cm/s Mitral E to MV E' Ratio 8.1 Mitral E to LV E' Lateral Ratio 6.9 Mitral E to LV E' Septal Ratio 9.8 TR Peak Velocity 203.3 cm/s TR Peak Gradient 16.5 mmHg TV Peak E Velocity 41.0 cm/s Right Atrial Pressure 5.0 mmHg Pulmonary Artery Systolic Pressu 21.5 mmHg PV Peak Velocity 77.0 cm/s RV Acceleration Time 0.1 s RV Ejection Time 0.3 s RV AcT/ET 0.4 FINDINGS Left Ventricle Normal left ventricular size and systolic function, EF 65 %. No regional wall motion abnormalities. Grade I/IV diastolic dysfunction (abnormal relaxation filling pattern), normal to mildly elevated filling pressures. Right Ventricle The right ventricle is normal in size and function. Right Atrium The right atrium is normal in size. Left Atrium The left atrium is normal in size. Mitral Valve Thickened mitral valve. Aortic Valve No gross abnormalities noted Tricuspid Valve Trace tricuspid valve regurgitation. Estimated pulmonary artery peak systolic pressure 22 mmHg Pulmonic Valve Trace pulmonary valve regurgitation. Pericardium Normal pericardium without effusion. Aorta Normal ascending aorta dimension. IVC Inferior vena cava not visualized. CONCLUSIONS Normal left ventricular size and systolic function, EF 65 %. No regional wall motion abnormalities. Grade I/IV diastolic dysfunction (abnormal relaxation filling pattern), normal to mildly elevated filling pressures. Trace tricuspid valve regurgitation. Estimated pulmonary artery peak systolic pressure 22 mmHg Thickened mitral valve. Trace pulmonary valve regurgitation. No similar previous studies are available for comparison Dr Graciela Matute MD FACC (Electronically Signed) Final Date: 17 Apr 2023 12:39 S
--- NOTE | 2023-06-08 13:47 | PM.DCS ---
Discharge Providers Date of Admission: 04/16/23 21:15 Date of Discharge: June 08, 2023 Attending Provider at Admission: Karine Steele MD Attending Provider at Discharge: Mark Carlson MD Primary Care Provider: Epi Daniels DO Diagnoses at Discharge Discharge Diagnosis (1) Abnormal nuclear cardiac imaging test: Status: Resolved (2) Chest pain at rest: Status: Resolved (3) Hypothyroidism: Status: Acute (4) SOB (shortness of breath): Status: Resolved (5) Dyslipidemia: Status: Acute Reason for Visit Reason for Visit: mouth pain Hospital Course Hospital Course Kevin Moreland is a 68 year old male with a past medical history of hypertension, dyslipidemia, GERD, trigeminal neuralgia presenting to the emergency room today with complaints of jaw pain.Initial concern for trigeminal neuralgia for which he received carbazepine in the RE with no improvement. Review of records shows that patient has been complaining of intermittent exertional chest pain on and off for the past 2 months.? He recently underwent a stress test which showed an area of reversibility suggesting ischemia in the distribution of the left circumflex artery.? Patient had continued to report persisting dyspnea and chest discomfort on his visit with cardiology on April 10, 2023 and was being planned for a cardiac cath as outpatient. He presented to the ER today with complaints of jaw pain and also intermittent chest discomfort.? Troponin series was obtained which showed a baseline troponin of 8, increasing to 21 at 2 hours with a delta of 13.? His EKG obtained today shows sinus rhythm with occasional VPCs.? No acute ST-T wave changes. With ongoing chest pain, elevated troponins and recently abnormal stress test overall concern for NSTEMI for which I requested cardiology be consulted to assess for angiogram Patient was admitted to [facility] for concerns for jaw pain, positive stress test, underwent coronary angiography with findings as below 1. 68-year-old white male with multiple risk factors for coronary artery disease, was admitted to hospital with features of a non-ST elevation myocardial infarction.? He had a positive stress test recently.? Patient underwent left heart catheterization with a left and right coronary angiogram and LV angiogram today.? The findings are as follows. ? 2. 1. Mild coronary artery disease. 2.? Left dominant coronary circulation. 3. The LV gram revealed mild diffuse hypokinesia of the mid and apical anterior wall segments.? LVEDP of 14 mmHg.? LV ejection fraction of 50%. ? 3. These features may suggest a variant of Takotsubo syndrome. Discharged with close follow-up with cardiology as outpatient Physical Exam Const: COMMON NORMALS: no acute distress and patient oriented x3 Resp: COMMON NORMALS: normal respiratory effort, No retractions, No use of accessory muscles and clear to auscultation bilaterally AUSCULTATION: clear to auscultation bilaterally Cardio: COMMON NORMALS: regular rate, regular rhythm, S1 normal heart sound present and S2 normal heart sound present RATE: regular rate RHYTHM: regular rhythm HEART SOUNDS: S1 normal heart sound present and S2 normal heart sound present GI: COMMON NORMALS: Normal to inspection, nondistended, normoactive bowel sounds present and non-tender Extremity: COMMON NORMALS: no pedal edema Neuro: COMMON NORMALS: patient oriented x3 Psych: COMMON NORMALS: mental status grossly normal Discharge Data Studies Completed and Pending Completed Studies During Hospitalization Category Date Time Status SOFTWARE APPLICATION TESTER request for service Routine Exams 04/17/23 08:30 Completed XR chest 1V portable [id number] Stat Exams 04/16/23 17:36 Completed CV. echo complete* [id number] Routine Ultrasound 04/17/23 23:09 Completed Radiology Impressions Chest X-Ray 04/16/23 17:36 IMPRESSION: No acute findings. Laboratory Results WBC 7.0 10^3/uL (4.0-10.0) 04/16/23 18:01 RBC 5.24 10^6/uL (4.1-5.3) 04/16/23 18:01 Hgb 15.9 g/dL (11.7-16.6) 04/16/23 18:01 Hct 47.1 % (42.0-52.0) 04/16/23 18:01 MCV 89.9 fl (80-94) 04/16/23 18:01 MCH 30.3 pg (28.0-34.0) 04/16/23 18:01 MCHC 33.8 g/dL (30.0-36.0) 04/16/23 18:01 RDW 12.4 % (12.1-15.1) 04/16/23 18:01 Plt Count 182 10^3/cmm (130-400) 04/16/23 18:01 MPV 10.2 fL (7.4-10.4) 04/16/23 18:01 Neut % (Auto) 63.3 % 04/16/23 18:01 Lymph % (Auto) 26.6 % 04/16/23 18:01 Pleas[place] % (Auto) 7.1 % 04/16/23 18:01 Eos % (Auto) 2.3 % 04/16/23 18:01 Baso % (Auto) 0.3 % 04/16/23 18:01 Neut # (Auto) 4.43 10^3/uL (1.8-7.7) 04/16/23 18:01 Lymph # (Auto) 1.9 10^3/uL (0.8-4.8) 04/16/23 18:01 Pleasants # (Auto) 0.5 10^3/uL (0.2-0.9) 04/16/23 18:01 Eos # (Auto) 0.2 10^3/uL (0.0-0.8) 04/16/23 18:01 Baso # (Auto) 0.0 10^3/uL (0.0-0.1) 04/16/23 18:01 Nucleated RBC % (auto) 0 % 04/16/23 18:01 Nucleated RBCs # 0.0 /100WBC 04/16/23 18:01 Sodium 137 mmol/L (136-145) 04/16/23 18:01 Potassium 3.7 mmol/L (3.5-5.1) 04/16/23 18:01 Chloride 99 mmol/L (98-107) 04/16/23 18:01 Carbon Dioxide 23 mmol/L (22-29) 04/16/23 18:01 Anion Gap 18.7 (5-19) 04/16/23 18:01 BUN 17 mg/dL (8-23) 04/16/23 18:01 Creatinine 0.9 mg/dL (0.7-1.2) 04/16/23 18:01 GFR Calculation 84.4 mL/min (90-130) L 04/16/23 18:01 Glucose 96 mg/dL (65-115) 04/16/23 18:01 Estimat Average Glucose 126 04/16/23 18:01 Hemoglobin A1c 6.0 % (4.0-6.0) 04/16/23 18:01 Calculated Osmolality 285 mOsm/kg (285-295) 04/16/23 18:01 Calcium 9.7 mg/dL (8.5-10.5) 04/16/23 18:01 Total Bilirubin 0.5 mg/dL (0.15-1.2) 04/16/23 18:01 AST 26 U/L (0-40) 04/16/23 18:01 ALT 21 U/L (0-41) 04/16/23 18:01 Alkaline Phosphatase 64 U/L (40-130) 04/16/23 18:01 Troponin T Baseline 8 ng/L (0-15) 04/16/23 18:01 Troponin T 120 Minute 21.89 ng/L (0-15) H 04/16/23 20:10 Delta Troponin T 13.89 ABS# (0-10) H* 04/16/23 20:10 Troponin T Hi Sens 6Hr 16.96 ng/L (0-15) H 04/17/23 01:00 Troponin T Hi Sens 6Hr Delta 8.96 ng/L (0-12) 04/17/23 01:00 NT-Pro-B Natriuret Pep 124 pg/mL (0-125) 04/16/23 18:01 Total Protein 7.5 g/dL (6.6-8.7) 04/16/23 18:01 Albumin 4.7 g/dL (3.5-5.2) 04/16/23 18:01 Globulin 2.8 g/dL (1.3-4.6) 04/16/23 18:01 Triglycerides 114 mg/dL (0-150) 04/16/23 18:01 Cholesterol 235 mg/dL (0-200) H 04/16/23 18:01 LDL Cholesterol, Calc 151 mg/dL (50-129) H 04/16/23 18:01 HDL Cholesterol 61 mg/dL (60-100) 04/16/23 18:01 LDL/HDL Ratio 2.48 RATIO (0.00-3.22) 04/16/23 18:01 Cholesterol/HDL Ratio 3.85 mg/dL (1.0-5.00) 04/16/23 18:01 Vitals Last Vital Signs Temp 97.8 F 04/17/23 15:25 Pulse 72 04/17/23 15:25 Resp 16 04/17/23 15:25 BP 120/79 04/17/23 15:25 Pulse Ox 94 04/17/23 15:25 O2 Del Method Room Air 04/17/23 11:58 O2 Flow Rate 2 04/16/23 23:10 Discharge Plan Discharge Patient Disposition: Home Condition: Stable Prescriptions: Continued omeprazole 20 mg capsule,delayed release(DR/EC) 20 mg PO BID PRN (Reason: Heartburn) sucralfate 1 gram tablet 1 gm PO DAILY PRN (Reason: unknown) jxjozbb-rcvz-cjvnq-oreg-capryl 100 mg-150 mg- 50 mg-150 mg capsule 1 cap PO DAILY nitroglycerin 0.4 mg tablet, sublingual 0.4 mg sublingual Q5M PRN (Reason: chest pain) Qty: 30 3RF Rx Instructions: until response; do not exceed 3 doses per episode metoprolol tartrate 25 mg tablet 12.5 mg PO BID Qty: 30 5RF fluticasone propionate 50 mcg/actuation spray,suspension 2 spray intranasal DAILY 360 Days Qty: 16 11RF Rx Instructions: administer into each nostril ascorbic acid (vitamin C) [Vitamin C] 500 mg Tablet 2,000 mg PO QPM Excedrin Migraine 250-250-65 mg Tablet 3 tab PO Q6H PRN (Reason: Migraine Headache) cholecalciferol (vitamin D3) [Vitamin D3] 125 mcg (5,000 unit) Tablet 125 mcg PO QPM magnesium 200 mg Tablet 200 mg PO DAILY ezetimibe 10 mg tablet 10 mg PO DAILY vitamin R46-fefmo acid 2,500-400 mcg Tablet,Disintegrating 1 tab PO DAILY No Action carbamazepine 100 mg capsule, ER multiphase 12 hr 100 mg PO BID Qty: 60 3RF Rx Instructions: take 2 tablets at bedtime meloxicam 15 mg tablet See Rx Instructions .ROUTE .COMPLEX Qty: 30 0RF Dose Instruction: TAKE ONE TABLET BY MOUTH DAILY Rx Instructions: TAKE ONE TABLET BY MOUTH DAILY Discharge Orders: Discharge Order (Routine); Ordered 04/17/23 Ordered By: Mark Carlson Referrals: Saravanan Ramos MD [Physician] - 04/22/23 2:45 pm Epi Daniels DO [Primary Care Provider] - (Call tomorrow to schedule appointment) Za Gonzales FNP [Nurse Practitioner] - 04/24/23 10:45 am Discharge Diet: Cardiac Discharge Activity: Resume usual activity Patient Instructions: Carbamazepine (By mouth) (TEGretol, TEGretol-XR, Carbatrol, Epitol), Heart Catheterization (DC), Opioid Safety Activity Restrictions/Additional Instructions: -see primary care in one week -see neurology in one week -use ultram sparingly Discharge Attestations Time Spent in Discharge Care*: less than 30 min Quality Metrics Clinical Quality Measures [ No reported AMI, CVA or VTE this stay] Coding Level of Care Code 75281 Total time (in minutes) for Discharge: 30 Diagnoses Abnormal nuclear cardiac imaging test R93.1 Chest pain at rest R07.9 Hypothyroidism E03.9 SOB (shortness of breath) R06.02 Dyslipidemia E78.5
== END 2023-04-17 15:27 | disposition home or self-care (01) ==
LOC: ER 17:33 → CSU 21:37
PROVIDERS: Internal Medicine Cardiovascular Disease; Admitting Provider Student in an Organized Health Care Education/Training Program; Emergency Provider Nurse Practitioner Family; PCP Emergency Medicine Emergency Medical Services; Visit Provider Family Medicine
DX: G50.0 Trigeminal neuralgia (principal); I49.8 Other specified cardiac arrhythmias; I45.2 Bifascicular block; I49.3 Ventricular premature depolarization; R77.8 Other specified abnormalities of plasma proteins; R94.31 Abnormal electrocardiogram [ECG] [EKG]; I10 Essential (primary) hypertension; E78.5 Hyperlipidemia, unspecified; K21.9 Gastro-esophageal reflux disease without esophagitis; E03.9 Hypothyroidism, unspecified; I42.9 Cardiomyopathy, unspecified; I25.10 Atherosclerotic heart disease of native coronary artery without angina pectoris
CPT/HCPCS: 36415; 71045; 80053; 80061; 83036; 83880; 84484; 85025; 93005; 93306; 93458; 96372; 96374; 99152; 99153; 99285; C1769; C1887; C1894; G0378; J1644; J1650; J2250; J2405; J3010; J3490; J7030; Q0163; Q9967

== ENCOUNTER → 2023-04-21 13:59 | Outpatient (BNVA) | payer OTHER, MEDICARE, SELFPAY | PROVIDERS: PCP Emergency Medicine Emergency Medical Services; Referring Provider Emergency Medicine Emergency Medical Services; Visit Provider Dermatology | DX: L57.0 Actinic keratosis (principal); L82.1 Other seborrheic keratosis; L21.8 Other seborrheic dermatitis; L57.8 Other skin changes due to chronic exposure to nonionizing radiation; Z85.828 Personal history of other malignant neoplasm of skin | CPT/HCPCS: 11102; 17000; 17003; 99204 ==

== ENCOUNTER → 2023-04-22 14:43 | Outpatient (BNVA) | payer MEDICARE, OTHER, SELFPAY | PROVIDERS: PCP Emergency Medicine Emergency Medical Services; Visit Provider Psychiatry & Neurology Neurology | DX: G50.0 Trigeminal neuralgia (principal) | CPT/HCPCS: 99203 ==

== ENCOUNTER → 2023-04-25 09:44 | Outpatient (BNVA) | payer MEDICARE, OTHER, SELFPAY | PROVIDERS: PCP Emergency Medicine Emergency Medical Services; Visit Provider Nurse Practitioner Family | DX: I25.10 Atherosclerotic heart disease of native coronary artery without angina pectoris (principal) | CPT/HCPCS: 36415; 80048; 99214 ==

== ENCOUNTER → 2024-08-20 09:00 | Outpatient (BNVA) | payer OTHER, SELFPAY | PROVIDERS: PCP Emergency Medicine Emergency Medical Services; Visit Provider Student in an Organized Health Care Education/Training Program | DX: Z12.11 Encounter for screening for malignant neoplasm of colon (principal) | CPT/HCPCS: 99204 ==

== ENCOUNTER 2025-02-01 15:41 | Emergency (ER) | payer OTHER, MEDICARE, SELFPAY ==
[2025-02-01] VITALS (21 sets, daily range): BP systolic 126–145; BP diastolic 61–81; PULSE 48–63; RESP 16–27; TEMP 36.4; O2SAT 94–100; BMI 23.0
[2025-02-01 16:10] LABS: Basophils % 0.6 %; Eosinophils # 0.1 10^3/uL (0.0-0.8); Eosinophils % 1.9 %; Hematocrit 46.8 % (37-53); Lymphocytes # 2.7 10^3/uL (0.8-4.8); Lymphocytes % 37.7 %; Mean Corpuscular HGB Conc 34.2 g/dL (30-55); Mean Corpuscular Hemoglobin 30.2 pg (27-33); Mean Corpuscular Volume 88.5 fl (82-101); Monocytes # 0.5 10^3/uL (0.2-0.9); Monocytes % 7.4 %; Neutrophils # 3.79 10^3/uL (1.8-7.7); Neutrophils % 52.3 %; Nucleated Red Blood Cells % 0 %; Platelet Count 219 10^3/cmm (157-399); Red Blood Count 5.29 10^6/uL (3.85-5.65); Red Cell Distribution Width 12.7 % (12.1-15.1); White Blood Count 7.26 10^3/uL (3.29-11.43)
[2025-02-01 16:31] LABS: Alanine Aminotransferase 14 U/L (0-41); Albumin Level 4.7 g/dL (3.5-5.2); Alkaline Phosphatase 72 U/L (40-130); Anion Gap 18.9 (5-19); Aspartate Amino Transferase 22 U/L (0-40); Blood Urea Nitrogen 15 mg/dL (8-23); Calcium 10.1 mg/dL (8.5-10.5); Carbon Dioxide 21 mmol/L (22-29); Chloride 99 mmol/L (98-107); Creatinine Clr Calc Pharmacy 84.6228; Globulin 3.1 g/dL (1.3-4.6); Glomerular Filtration Rate 84.2 mL/min (90-130); Glucose 108 mg/dL (65-115); Lipase 39 U/L (13-60); Osmolality Calculated 281 mOsm/kg (285-295); Potassium 3.9 mmol/L (3.5-5.1); Sodium 135 mmol/L (136-145); Total Bilirubin 0.6 mg/dL (0.15-1.2); Total Protein 7.8 g/dL (6.6-8.7)
--- NOTE | 2025-02-01 16:45 | W.ED.ABDPA2 ---
Documented by User: MATA Myrick 02/01/25 17:03 HPI - Abdominal Pain General: Chief Complaint: Abdominal Pain Stated Complaint: rt side abd pain Time Seen by Provider: 02/01/25 15:44 Source: patient Mode of arrival: ambulatory Limitations: no limitations History of Present Illness: 69 year old male with a history of Graves' disease presents to the ER complaining of RUQ pain. He states this started today at noon and tried to tough it out but the pain kept worsening with time. He feels like pain radiates to his back. Patient states he has not taken anything for his pain. He reports having a normal BM this morning. He denies chest pain, dyspnea, palpitations, hematochezia, nausea, vomiting. MD elicited complaint: abdominal pain Onset (ago): hour(s) Pain Consistency: constant Location: RUQ Severity: moderate Pain scale (0-10): 7 Quality: cramping and fullness Radiation: back (Right upper back ) Migration to: no migration Exacerbating factors: movement Relieving factors: nothing Associated Symptoms: Denies chills, constipation, diarrhea, dysuria, fever(s), hematemesis, nausea and vomiting Related Data Home Medications ?Medication ?Instructions ?Recorded ?Confirmed omeprazole 20 mg capsule,delayed 20 mg PO BID PRN Heartburn 02/03/20 08/20/24 release sucralfate 1 gram tablet 1 gm PO DAILY PRN unknown 02/03/20 08/20/24 ascorbic acid (vitamin C) 500 mg 2,000 mg PO QPM 01/21/22 08/20/24 tablet (Vitamin C) yywelpq-vskzjmzntjmnc-gatycpsk 250 3 tab PO Q6H PRN Migraine Headache 01/21/22 08/20/24 mg-250 mg-65 mg tablet (Excedrin Migraine) cholecalciferol (vitamin D3) 125 125 mcg PO QPM 01/21/22 08/20/24 mcg (5,000 unit) tablet (Vitamin D3) turmeric 100 mg-yuli 150 1 cap PO DAILY 02/03/23 08/20/24 mg-olive 50 mg-oreg 150 mg-capryl capsule ezetimibe 10 mg tablet 10 mg PO DAILY 04/17/23 08/20/24 magnesium 200 mg tablet 200 mg PO DAILY 04/17/23 08/20/24 vitamin B12 2,500 mcg-folic acid 1 tab PO DAILY 04/17/23 08/20/24 400 mcg disintegrating tablet Previous Rx's ?Medication ?Instructions ?Recorded fluticasone propionate 50 2 spray intranasal DAILY 12 months 10/22/22 mcg/actuation nasal #16 grams spray,suspension nitroglycerin 0.4 mg sublingual 0.4 mg sublingual Q5M PRN chest 02/03/23 tablet pain #30 tabs carbamazepine 100 mg 100 mg PO BID #60 caps 05/07/23 capsule,extended release [id number] meloxicam 15 mg tablet See Rx Instructions .Route 05/07/23 .COMPLEX #30 tabs metoprolol tartrate 25 mg tablet See Rx Instructions .Route 10/22/23 .COMPLEX #30 tabs amoxicillin 875 mg-potassium 1 tab PO BID 10 days #20 tabs 02/01/25 clavulanate 125 mg tablet hydrocodone 5 mg-acetaminophen 325 1 tab PO Q6H PRN pain #14 tabs 02/01/25 mg tablet Allergies Allergy/AdvReac Type Severity Reaction Status Date / Time hydromorphone (From Dilaudid) Allergy ADR-Vomitin Verified 02/01/25 16:25 g Review of Systems Const: Denies: fever(s), chills or body aches Card: Denies: chest pain or palpitations Resp: Denies: dyspnea GI: Reports: abdominal pain; Denies: nausea, vomiting, hematemesis, diarrhea or constipation : Denies: flank pain, difficulty urinating, dysuria, urinary frequency, urinary urgency or urinary hesitancy Musc: Reports: back pain (R. upper back); Denies: neck pain, extremity pain, extremity swelling, joint pain, joint swelling or joint redness Skin/Breast: Denies: rash or erythema Neuro: Reports: dizziness; Denies: headache(s) PFSH ED PFSH: Medical History Atherosclerosis of coronary artery without angina pectoris GERD (gastroesophageal reflux disease) Colon polyps Cervical spine pain Trigeminal neuralgia Graves disease Pure hypercholesterolemia Hypothyroidism GERD (gastroesophageal reflux disease) Surgical History H/O vasectomy History of subtotal thyroidectomy 1992 Family History Mother Cancer Brother Cancer Social History Smoking and tobacco/nicotine status: never used tobacco/nicotine Physical Exam Const: COMMON NORMALS: no acute distress, average body habitus, patient oriented x3, no limitations, healthy appearing, alert and well nourished GENERAL APPEARANCE: cooperative ORIENTATION/CONSCIOUSNESS: Yes awake, Yes oriented to person, Yes oriented to place and Yes oriented to time Eye: COMMON NORMALS: no scleral icterus Neck/C-Spine: COMMON NORMALS: full ROM, no lymphadenopathy and no JVD GENERAL: Yes normal visual inspection Chest: COMMONS NORMALS: normal inspection of the chest Resp: COMMON NORMALS: normal respiratory effort and clear to auscultation bilaterally AUSCULTATION: clear to auscultation bilaterally Cardio: COMMON NORMALS: no JVD and regular rhythm RATE: bradycardic RHYTHM: regular rhythm GI: COMMON NORMALS: Normal to inspection, nondistended, normoactive bowel sounds present, Soft to palpation, No hepatosplenomegaly present and no masses INSPECTION: Yes normal to inspection AUSCULTATION: Yes normoactive bowel sounds PALPATION: Yes Soft to palpation, Yes Tenderness to palpation present (GI) (RUQ, + Simmons sign ) Details: RUQ, No Guarding due to palpation present (GI), No Rigid due to palpation and Yes No hepatosplenomegaly present : COMMON NORMALS: Yes no CVA tenderness BLADDER/KIDNEY EXAM: Yes no CVA tenderness Back/Pelvis: COMMON NORMALS: no CVA tenderness and thoracic and lumbar spine normal to inspection Extremity: GENERAL: Yes normal exam except as noted Neuro: COMMON NORMALS: patient oriented x3, moves all extremities, no focal motor deficits and no sensory deficits noted SENSORIUM/ORIENTATION: Yes alert, Yes oriented to person, Yes oriented to place and Yes oriented to time Skin: COMMON NORMALS: no rashes or lesions noted GENERAL SKIN EXAM: no rashes or lesions noted Course Vital Signs: Vital signs: Vital Signs Temperature 97.5 F L 02/01/25 16:19 Pulse Rate 55 L 02/01/25 18:35 Respiratory Rate 19 H 02/01/25 18:35 Blood Pressure 142/79 02/01/25 18:35 Pulse Oximetry 95 02/01/25 18:35 Oxygen Delivery Me thod Room Air 02/01/25 18:00 MDM - Abdominal Pain Lab Data 02/01/25 15:56 02/01/25 15:56 Labs/Radiology: Radiology Impressions Chest X-Ray 02/01/25 16:46 IMPRESSION: No acute portable chest findings. Gallbladder Ultrasound 02/01/25 16:46 IMPRESSION: 1. Suspected cholecystitis , as described. 2. Intrahepatic biliary duct and common bile duct prominence with no distinct stone identified. 3. MRCP suggested for your consideration. Laboratory Results WBC 7.26 10^3/uL (3.29-11.43) 02/01/25 15:56 RBC 5.29 10^6/uL (3.85-5.65) 02/01/25 15:56 Hgb 16.00 g/dL (11.27-16.99) 02/01/25 15:56 Hct 46.8 % (37-53) 02/01/25 15:56 MCV 88.5 fl (82-101) 02/01/25 15:56 MCH 30.2 pg (27-33) 02/01/25 15:56 MCHC 34.2 g/dL (30-55) 02/01/25 15:56 RDW 12.7 % (12.1-15.1) 02/01/25 15:56 Plt Count 219 10^3/cmm (157-399) 02/01/25 15:56 MPV 10.0 fL (7.4-10.4) 02/01/25 15:56 Neut % (Auto) 52.3 % 02/01/25 15:56 Lymph % (Auto) 37.7 % 02/01/25 15:56 Coal % (Auto) 7.4 % 02/01/25 15:56 Eos % (Auto) 1.9 % 02/01/25 15:56 Baso % (Auto) 0.6 % 02/01/25 15:56 Neut # (Auto) 3.79 10^3/uL (1.8-7.7) 02/01/25 15:56 Lymph # (Auto) 2.7 10^3/uL (0.8-4.8) 02/01/25 15:56 Coal # (Auto) 0.5 10^3/uL (0.2-0.9) 02/01/25 15:56 Eos # (Auto) 0.1 10^3/uL (0.0-0.8) 02/01/25 15:56 Baso # (Auto) 0.0 10^3/uL (0.0-0.1) 02/01/25 15:56 Nucleated RBC % (auto) 0 % 02/01/25 15:56 Nucleated RBCs # 0.0 /100WBC 02/01/25 15:56 Sodium 135 mmol/L (136-145) L 02/01/25 15:56 Potassium 3.9 mmol/L (3.5-5.1) 02/01/25 15:56 Chloride 99 mmol/L (98-107) 02/01/25 15:56 Carbon Dioxide 21 mmol/L (22-29) L 02/01/25 15:56 Anion Gap 18.9 (5-19) 02/01/25 15:56 BUN 15 mg/dL (8-23) 02/01/25 15:56 Creatinine 0.9 mg/dL (0.7-1.2) 02/01/25 15:56 GFR Calculation 84.2 mL/min (90-130) L 02/01/25 15:56 Glucose 108 mg/dL (65-115) 02/01/25 15:56 Calculated Osmolality 281 mOsm/kg (285-295) L 02/01/25 15:56 Calcium 10.1 mg/dL (8.5-10.5) 02/01/25 15:56 Total Bilirubin 0.6 mg/dL (0.15-1.2) 02/01/25 15:56 AST 22 U/L (0-40) 02/01/25 15:56 ALT 14 U/L (0-41) 02/01/25 15:56 Alkaline Phosphatase 72 U/L (40-130) 02/01/25 15:56 Troponin T Baseline < 6 ng/L (0-15) 02/01/25 15:56 Total Protein 7.8 g/dL (6.6-8.7) 02/01/25 15:56 Albumin 4.7 g/dL (3.5-5.2) 02/01/25 15:56 Globulin 3.1 g/dL (1.3-4.6) 03/04/25 15:56 Lipase 39 U/L (13-60) 02/01/25 15:56 Discharge Plan Discharge Patient Disposition: Home Clinical Impression: Acute cholecystitis Condition: Stable Prescriptions: New hydrocodone-acetaminophen 5-325 mg tablet 1 tab PO Q6H PRN (Reason: pain) Qty: 14 0RF amoxicillin-pot clavulanate 875-125 mg tablet 1 tab PO BID 10 Days Qty: 20 0RF No Action omeprazole 20 mg capsule,delayed release(DR/EC) 20 mg PO BID PRN (Reason: Heartburn) sucralfate 1 gram tablet 1 gm PO DAILY PRN (Reason: unknown) krkulfmc-yhzp-jndnk-oreg-capry 100 mg-150 mg- 50 mg-150 mg capsule 1 cap PO DAILY nitroglycerin 0.4 mg tablet, sublingual 0.4 mg sublingual Q5M PRN (Reason: chest pain) Qty: 30 3RF Rx Instructions: until response; do not exceed 3 doses per episode fluticasone propionate 50 mcg/actuation spray,suspension 2 spray intranasal DAILY 360 Days Qty: 16 11RF Rx Instructions: administer into each nostril carbamazepine 100 mg capsule, ER multiphase 12 hr 100 mg PO BID Qty: 60 3RF Rx Instructions: take 2 tablets at bedtime meloxicam 15 mg tablet See Rx Instructions .ROUTE .COMPLEX Qty: 30 0RF Dose Instruction: TAKE ONE TABLET BY MOUTH DAILY Rx Instructions: TAKE ONE TABLET BY MOUTH DAILY metoprolol tartrate 25 mg tablet See Rx Instructions .ROUTE .COMPLEX Qty: 30 5RF Dose Instruction: take one-half tablet BY MOUTH twice daily Rx Instructions: take one-half tablet BY MOUTH twice daily ascorbic acid (vitamin C) [Vitamin C] 500 mg Tablet 2,000 mg PO QPM Excedrin Migraine 250-250-65 mg Tablet 3 tab PO Q6H PRN (Reason: Migraine Headache) cholecalciferol (vitamin D3) [Vitamin D3] 125 mcg (5,000 unit) Tablet 125 mcg PO QPM magnesium 200 mg Tablet 200 mg PO DAILY ezetimibe 10 mg tablet 10 mg PO DAILY vitamin T43-upaev acid 2,500-400 mcg Tablet,Disintegrating 1 tab PO DAILY Discharge Orders: Discharge ED (Routine); Ordered 02/01/25 Ordered By: Ramos Lazcano Referrals: Frances,Epi D, DO [Primary Care Provider] - Patient Instructions: Cholecystitis (ED), Low Fat Diet (ED) Activity Restrictions/Additional Instructions: Please take the antibiotics as prescribed. Pain medication for breakthrough pain. Please follow-up with general surgery as we discussed, please await call to schedule this appointment. GI soft diet, see the attached patient instructions for further education. Please return with any high fever, yellowing of your skin, altered mental status, severe worsening of pain, or any other concerns that you have. Print Language: Dutch Sign Out Sign Out Data: Patient Sign Out occurred on 02/01/25 at 17:09. Patient's care was discussed, and care was transferred from MATA Myrick to MATA Puri. Coding Level of Care Code ED Fire Department Marine Engineer for Chg Fwd Documented by User: MATA Puri 02/01/25 18:50 HPI - Abdominal Pain General: Chief Complaint: Abdominal Pain Stated Complaint: rt side abd pain Time Seen by Provider: 02/01/25 15:44 Related Data Home Medications ?Medication ?Instructions ?Recorded ?Confirmed omeprazole 20 mg capsule,delayed 20 mg PO BID PRN Heartburn 02/03/20 08/20/24 release sucralfate 1 gram tablet 1 gm PO DAILY PRN unknown 02/03/20 08/20/24 ascorbic acid (vitamin C) 500 mg 2,000 mg PO QPM 01/21/22 08/20/24 tablet (Vitamin C) zvbjcqs-oebaxttkfjrmi-zrzrkqqd 250 3 tab PO Q6H PRN Migraine Headache 01/21/22 08/20/24 mg-250 mg-65 mg tablet (Excedrin Migraine) cholecalciferol (vitamin D3) 125 125 mcg PO QPM 01/21/22 08/20/24 mcg (5,000 unit) tablet (Vitamin D3) turmeric 100 mg-yuli 150 1 cap PO DAILY 02/03/23 08/20/24 mg-olive 50 mg-oreg 150 mg-capryl capsule ezetimibe 10 mg tablet 10 mg PO DAILY 04/17/23 08/20/24 magnesium 200 mg tablet 200 mg PO DAILY 04/17/23 08/20/24 vitamin B12 2,500 mcg-folic acid 1 tab PO DAILY 04/17/23 08/20/24 400 mcg disintegrating tablet Previous Rx's ?Medication ?Instructions ?Recorded fluticasone propionate 50 2 spray intranasal DAILY 12 months 10/22/22 mcg/actuation nasal #16 grams spray,suspension nitroglycerin 0.4 mg sublingual 0.4 mg sublingual Q5M PRN chest 02/03/23 tablet pain #30 tabs carbamazepine 100 mg 100 mg PO BID #60 caps 05/07/23 capsule,extended release [id number] meloxicam 15 mg tablet See Rx Instructions .Route 05/07/23 .COMPLEX #30 tabs metoprolol tartrate 25 mg tablet See Rx Instructions .Route 10/22/23 .COMPLEX #30 tabs amoxicillin 875 mg-potassium 1 tab PO BID 10 days #20 tabs 02/01/25 clavulanate 125 mg tablet hydrocodone 5 mg-acetaminophen 325 1 tab PO Q6H PRN pain #14 tabs 02/01/25 mg tablet Allergies Allergy/AdvReac Type Severity Reaction Status Date / Time hydromorphone (From Dilaudid) Allergy ADR-Vomitin Verified 02/01/25 16:25 g PFSH ED PFSH: Medical History Atherosclerosis of coronary artery without angina pectoris GERD (gastroesophageal reflux disease) Colon polyps Cervical spine pain Trigeminal neuralgia Graves disease Pure hypercholesterolemia Hypothyroidism GERD (gastroesophageal reflux disease) Surgical History H/O vasectomy History of subtotal thyroidectomy 1991 Family History Mother Cancer Brother Cancer Social History Smoking and tobacco/nicotine status: never used tobacco/nicotine Course Vital Signs: Vital signs: Vital Signs Temperature 97.5 F L 02/01/25 16:19 Pulse Rate 55 L 02/01/25 18:35 Respiratory Rate 19 H 02/01/25 18:35 Blood Pressure 142/79 02/01/25 18:35 Pulse Oximetry 95 02/01/25 18:35 Oxygen Delivery Me thod Room Air 02/01/25 18:00 MDM - Abdominal Pain Medical Decision Making Care of this patient transferred Anne Jimenez PA-C. Patient presented with sudden onset right upper quadrant pain beginning at noon. Still had his gallbladder. Has been bradycardic throughout ED visit, has a history of bradycardia and there are no other abnormalities detected on his EKG. Due to his age and risk factors, did a cardiac workup that was unremarkable. Positive Simmons sign on exam, ultrasound did show some signs of acute cholecystitis with some duct dilatation and no obvious stone. MRCP was suggested. With his lab work, there was no elevation in his LFTs or his total bilirubin, white count was normal and the rest of his labs ultimately were unremarkable. Due to the acute infectious signs I spoke with on-call general surgeon, Dr. Bernard, who had recommended starting on Augmentin with proper pain control and that they would see the patient in the office likely for MRCP. Discussed this plan with the patient, who states that at this time his pain is completely gone, and I instructed him to only use the pain medications provided for breakthrough pain. He is also not complaining of any nausea. All other questions and concerns were addressed, he agrees with discharge plan and verbalized return precautions. Lab Data 02/01/25 15:56 02/01/25 15:56 Labs/Radiology: Radiology Impressions Chest X-Ray 02/01/25 16:46 IMPRESSION: No acute portable chest findings. Gallbladder Ultrasound 02/01/25 16:46 IMPRESSION: 1. Suspected cholecystitis , as described. 2. Intrahepatic biliary duct and common bile duct prominence with no distinct stone identified. 3. MRCP suggested for your consideration. Laboratory Results WBC 7.26 10^3/uL (3.29-11.43) 02/01/25 15:56 RBC 5.29 10^6/uL (3.85-5.65) 02/01/25 15:56 Hgb 16.00 g/dL (11.27-16.99) 02/01/25 15:56 Hct 46.8 % (37-53) 02/01/25 15:56 MCV 88.5 fl (82-101) 02/01/25 15:56 MCH 30.2 pg (27-33) 02/01/25 15:56 MCHC 34.2 g/dL (30-55) 02/01/25 15:56 RDW 12.7 % (12.1-15.1) 02/01/25 15:56 Plt Count 219 10^3/cmm (157-399) 02/01/25 15:56 MPV 10.0 fL (7.4-10.4) 02/01/25 15:56 Neut % (Auto) 52.3 % 02/01/25 15:56 Lymph % (Auto) 37.7 % 02/01/25 15:56 Coal % (Auto) 7.4 % 02/01/25 15:56 Eos % (Auto) 1.9 % 02/01/25 15:56 Baso % (Auto) 0.6 % 02/01/25 15:56 Neut # (Auto) 3.79 10^3/uL (1.8-7.7) 02/01/25 15:56 Lymph # (Auto) 2.7 10^3/uL (0.8-4.8) 02/01/25 15:56 Coal # (Auto) 0.5 10^3/uL (0.2-0.9) 02/01/25 15:56 Eos # (Auto) 0.1 10^3/uL (0.0-0.8) 02/01/25 15:56 Baso # (Auto) 0.0 10^3/uL (0.0-0.1) 02/01/25 15:56 Nucleated RBC % (auto) 0 % 02/01/25 15:56 Nucleated RBCs # 0.0 /100WBC 02/01/25 15:56 Sodium 135 mmol/L (136-145) L 02/01/25 15:56 Potassium 3.9 mmol/L (3.5-5.1) 02/01/25 15:56 Chloride 99 mmol/L (98-107) 02/01/25 15:56 Carbon Dioxide 21 mmol/L (22-29) L 02/01/25 15:56 Anion Gap 18.9 (5-19) 02/01/25 15:56 BUN 15 mg/dL (8-23) 02/01/25 15:56 Creatinine 0.9 mg/dL (0.7-1.2) 02/01/25 15:56 GFR Calculation 84.2 mL/min (90-130) L 02/01/25 15:56 Glucose 108 mg/dL (65-115) 02/01/25 15:56 Calculated Osmolality 281 mOsm/kg (285-295) L 02/01/25 15:56 Calcium 10.1 mg/dL (8.5-10.5) 02/01/25 15:56 Total Bilirubin 0.6 mg/dL (0.15-1.2) 02/01/25 15:56 AST 22 U/L (0-40) 02/01/25 15:56 ALT 14 U/L (0-41) 02/01/25 15:56 Alkaline Phosphatase 72 U/L (40-130) 02/01/25 15:56 Troponin T Baseline < 6 ng/L (0-15) 02/01/25 15:56 Total Protein 7.8 g/dL (6.6-8.7) 02/01/25 15:56 Albumin 4.7 g/dL (3.5-5.2) 02/01/25 15:56 Globulin 3.1 g/dL (1.3-4.6) 02/01/25 15:56 Lipase 39 U/L (13-60) 02/01/25 15:56 All radiology interpretation(s) finalized by discharge Discharge Plan Discharge Patient Disposition: Home Clinical Impression: Acute cholecystitis Condition: Stable Prescriptions: New hydrocodone-acetaminophen 5-325 mg tablet 1 tab PO Q6H PRN (Reason: pain) Qty: 14 0RF amoxicillin-pot clavulanate 875-125 mg tablet 1 tab PO BID 10 Days Qty: 20 0RF No Action omeprazole 20 mg capsule,delayed release(DR/EC) 20 mg PO BID PRN (Reason: Heartburn) sucralfate 1 gram tablet 1 gm PO DAILY PRN (Reason: unknown) zdguzsex-vnnv-qbrhj-oreg-capry 100 mg-150 mg- 50 mg-150 mg capsule 1 cap PO DAILY nitroglycerin 0.4 mg tablet, sublingual 0.4 mg sublingual Q5M PRN (Reason: chest pain) Qty: 30 3RF Rx Instructions: until response; do not exceed 3 doses per episode fluticasone propionate 50 mcg/actuation spray,suspension 2 spray intranasal DAILY 360 Days Qty: 16 11RF Rx Instructions: administer into each nostril carbamazepine 100 mg capsule, ER multiphase 12 hr 100 mg PO BID Qty: 60 3RF Rx Instructions: take 2 tablets at bedtime meloxicam 15 mg tablet See Rx Instructions .ROUTE .COMPLEX Qty: 30 0RF Dose Instruction: TAKE ONE TABLET BY MOUTH DAILY Rx Instructions: TAKE ONE TABLET BY MOUTH DAILY metoprolol tartrate 25 mg tablet See Rx Instructions .ROUTE .COMPLEX Qty: 30 5RF Dose Instruction: take one-half tablet BY MOUTH twice daily Rx Instructions: take one-half tablet BY MOUTH twice daily ascorbic acid (vitamin C) [Vitamin C] 500 mg Tablet 2,000 mg PO QPM Excedrin Migraine 250-250-65 mg Tablet 3 tab PO Q6H PRN (Reason: Migraine Headache) cholecalciferol (vitamin D3) [Vitamin D3] 125 mcg (5,000 unit) Tablet 125 mcg PO QPM magnesium 200 mg Tablet 200 mg PO DAILY ezetimibe 10 mg tablet 10 mg PO DAILY vitamin K10-qzpmm acid 2,500-400 mcg Tablet,Disintegrating 1 tab PO DAILY Discharge Orders: Discharge ED (Routine); Ordered 02/01/25 Ordered By: Ramos Lazcano Referrals: Epi Daniels, [Primary Care Provider] - Patient Instructions: Cholecystitis (ED), Low Fat Diet (ED) Activity Restrictions/Additional Instructions: Please take the antibiotics as prescribed. Pain medication for breakthrough pain. Please follow-up with general surgery as we discussed, please await call to schedule this appointment. GI soft diet, see the attached patient instructions for further education. Please return with any high fever, yellowing of your skin, altered mental status, severe worsening of pain, or any other concerns that you have. Print Language: Dutch Sign Out Sign Out Data: Patient Sign Out occurred on 02/01/25 at 17:09. Patient's care was discussed, and care was transferred from MATA Myrick to MATA Puri. Coding Level of Care Code ED Fire Department Marine Engineer for Sherri Canas
--- NOTE | 2025-02-01 16:46 | USR_ITS ---
PROCEDURE INFORMATION: Exam: US Abdomen, Limited; Right Upper Quadrant Exam date and time: 02/01/2025 5:24 PM Age: 69 years old Clinical indication: Abdominal pain; Additional info: Ruq pain TECHNIQUE: Imaging protocol: Real time ultrasound of the abdomen with image documentation. Limited exam focused on the right upper quadrant. COMPARISON: CT rene bergman [id number] 12/21/2022 3:31 PM FINDINGS: Liver: Subtle intrahepatic biliary duct dilatation suspected with no distinct CBD stone. No masses. Gallbladder: The gallbladder is mildly contracted. Gallbladder wall thickness is at the upper normal limits. Numerous family he might be finished why not be taking a break go ahead and do that in the coming like between 30 minutes 1 GI cystic more than 30 minutes in the middle of this of the [place] M[place] No gallstones. There is no gallbladder wall thickening. Biliary ducts: Common bile duct is slightly enlarged at 0.8 cm. No stones identified. Pancreas: Not visualized/obscured by bowel-gas. Right kidney: 3 cm anterior medial renal cyst unchanged in comparison to an earlier CT from 12/21/2022. No mass. No hydronephrosis. US/US gall bladder [id number] IMPRESSION: 1. Suspected cholecystitis , as described. 2. Intrahepatic biliary duct and common bile duct prominence with no distinct stone identified. 3. MRCP suggested for your consideration.
--- NOTE | 2025-02-01 16:46 | XRR_ITS ---
PROCEDURE INFORMATION: Exam: XR Chest Exam date and time: 02/01/2025 5:10 PM Age: 69 years old Clinical indication: Pain; Other: Abdominal; Additional info: Abdominal pain TECHNIQUE: Imaging protocol: Radiologic exam of the chest. Views: 1 view. COMPARISON: CR XR chest 1V portable [id number] 04/16/2023 5:51 PM FINDINGS: Lungs: Monitoring leads overlie the chest. Trace increased interstitial markings are seen in the lower lungs but similar to the prior study. No consolidation. Pleural spaces: Unremarkable. No pleural effusion. No pneumothorax. Heart/Mediastinum: Unremarkable. No cardiomegaly. Bones/joints: Unremarkable. Other findings: Surgical clip or linear radiopaque artifact is seen over the left lower neck region. This was present on an earlier CT scanogram of the chest dated 01/21/2022. This is not felt to be significant. No evidence of free air under the diaphragm on this upright study. XR/XR chest 1V portable [id number] IMPRESSION: No acute portable chest findings.
[2025-02-01 17:08] LABS: Troponin(5th) Baseline < 6 ng/L (0-15)
--- NOTE | 2025-02-01 18:46 | ECG_ITS ---
[facility] Date: 2025-02-01 Pat Name: Kevin Moreland Department: Room: Gender: Male Proofer Apprentice: : 1955 Requested By: Amanda Jimenez Order Number: [id number] Carrie MD: Nicolas Rodriguez M.D. Measurements Intervals [place] Rate: 47 P: -10 ID: [id number] QRS: 113 QRSD: 109 T: -14 QT: 460 QTc: 407 Interpretive Statements SINUS BRADYCARDIA POSSIBLE RIGHT VENTRICULAR HYPERTROPHY [SOME/ALL OF: PROMINENT R IN V1, LATE TRANSITION, RAD, BHANU, SSS] ABNORMAL QRS-T ANGLE [QRS-T AXIS DIFFERENCE > 60] Compared to ECG 02/01/2025 16:41:23 Right-axis deviation no longer present Myocardial infarct finding no longer present Electronically Signed On 02-05-2025 19:44:30 FIELD SOFTWARE ENGINEER by Nicolas Rodriguez M.D. [email or web address]
[2025-02-01] MEDS: amoxicillin-clav 875-125 mg Tablet 1 TAB PO (19:00)
[2025-02-01 19:11] LABS: Troponin 5 2HR Delta 0.00001 ABS# (0-10)
[2025-02-01 19:11] LABS: Bilirubin Urine Negative (Negative); Blood Urine Negative (Negative); Glucose Urine UA Negative (Normal); Ketones Urine 1+ (Negative); Leukocyte Esterase Urine Negative (Negative); Nitrate Urine Negative (Negative); Protein Urine Negative (Negative); Specific Gravity, Urine 1.012 (1.005-1.030); Urine Appearance Clear (CLEAR); Urine Color Yellow (Yellow); Urobilinogen Urine 0.2 mg/dL (Negative); pH Urine 6.5 (5-7)
[2025-02-01 19:37] LABS: Add Urine Culture? No; Add Urine Microscopic? YES; Bacteria Urine TRACE /hpf; RBC Urine RARE /hpf (0-2); Squamous Epithelial Cell Urine 0-4 /hpf (0-5); UA Manual Slide Review YES; WBC Urine RARE /hpf (0-5)
--- NOTE | 2025-02-01 22:46 | ECG_ITS ---
[facility] Date: 2025-02-01 Pat Name: Kevin Moreland Department: Room: Gender: Male Foreign Language Stenographer: : 1955 Requested By: Amanda Jimenez Order Number: [id number] Carrie MD: Nicolas Rodriguez M.D. Measurements Intervals [place] Rate: 50 P: -11 WI: 179 QRS: 108 QRSD: 105 T: -17 QT: 446 QTc: 407 Interpretive Statements SINUS BRADYCARDIA RIGHT AXIS DEVIATION [QRS AXIS > 100] POSSIBLE INFERIOR MYOCARDIAL INFARCTION , OF INDETERMINATE AGE [30 ms Q WAVE IN II/aVF] Compared to ECG 04/16/2023 23:48:23 Right-axis deviation now present Myocardial infarct finding now present Sinus rhythm no longer present Left-axis deviation no longer present Electronically Signed On 02-05-2025 19:44:43 SLOTTER OPERATOR HELPER by Nicolas Rodriguez M.D. [email or web address]
--- NOTE | 2025-02-02 10:13 | DCPLANNER ---
messaged gen surg for er f/u
== END 2025-02-01 19:05 | disposition home or self-care (01) ==
PROVIDERS: Physician Assistant; Emergency Provider Physician Assistant; PCP Emergency Medicine Emergency Medical Services
DX: K81.0 Acute cholecystitis (principal)
CPT/HCPCS: 36415; 71045; 76705; 80053; 81001; 83690; 84484; 85025; 93005; 99285

== ENCOUNTER → 2025-02-07 12:53 | Outpatient (BNVA) | payer OTHER, SELFPAY | PROVIDERS: PCP Emergency Medicine Emergency Medical Services; Visit Provider Student in an Organized Health Care Education/Training Program | DX: K82.9 Disease of gallbladder, unspecified (principal) | CPT/HCPCS: 99204; 99214 ==

== ENCOUNTER → 2025-03-02 10:11 | Outpatient (BNVA) | payer OTHER, SELFPAY | PROVIDERS: PCP Emergency Medicine Emergency Medical Services; Referring Provider Nurse Practitioner Family; Visit Provider Internal Medicine | DX: E78.5 Hyperlipidemia, unspecified (principal); E03.9 Hypothyroidism, unspecified; E05.00 Thyrotoxicosis with diffuse goiter without thyrotoxic crisis or storm | CPT/HCPCS: 36415; 83516; 84439; 84443; 84480; 86376; 86800 ==

== ENCOUNTER 2025-03-09 12:54 | Emergency (ER) | payer OTHER, MEDICARE, SELFPAY ==
[2025-03-09] VITALS (33 sets, daily range): BP systolic 118–150; BP diastolic 67–80; PULSE 65–81; RESP 13–31; TEMP 36.7; O2SAT 92–100; BMI 23.6
--- NOTE | 2025-03-09 12:55 | XR_ITS ---
WS: [id number] Exam: XR chest 1V portable [id number] Date/Time of Exam: 03/09/2025 1:10 PM Reason For Exam: dyspnea/cough Exam: XR chest 1V portable [id number] Date/Time of Exam: 03/09/2025 1:10 PM Reason For Exam: dyspnea/cough Comparison 02/01/2025. Lungs are clear and fully inflated. Normal cardiomediastinal silhouette and regional bony elements. Again noted is a tiny linear metallic density superimposing the medial LEFT first rib and could represent a soft tissue foreign body. This has been noted on previous imaging exams. XR/XR chest 1V portable [id number] IMPRESSION: 1. No acute cardiopulmonary finding.
--- NOTE | 2025-03-09 12:57 | ECG_ITS ---
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 Measurements Intervals Freedom Rate: 68 P: 33 CT: 163 QRS: -58 QRSD: 103 T: 69 QT: 363 QTc: 388 Interpretive Statements SINUS RHYTHM LEFT ANTERIOR FASCICULAR BLOCK [QRS AXIS <= -45, QR IN I, RS IN II] Compared to ECG 02/01/2025 18:11:28 Left anterior fascicular block now present Sinus bradycardia no longer present Electronically Signed On 03-09-2025 15:57:16 CDT by Graciela Matute M.D. [email or web address]
--- NOTE | 2025-03-09 13:16 | ED_ITS ---
HPI - SOB/Dyspnea 2 General: Chief Complaint: Shortness of Breath/Dyspnea Stated Complaint: SOB Time Seen by Provider: 03/09/25 12:55 History of Present Illness: HPI Narrative: 69-year-old male presents emergency room complaining of shortness of breath minimally productive cough weakness for the last 3 days. Denies any fever. He has just been very weak and short of breath. No chest pain no dysuria urgency or frequency no abdominal pain but 3 weeks ago he had his gallbladder out. [facility] was [facility] [place] [facility] today I told him his chest x-ray was normal number refer him to the emergency room when I arrived in the room he satting 99 to 100% he has nasal cannula on but is not turned on it was removed his oxygen stats remained normal the remainder of his vitals are normal. He denies any hemoptysis. Associated symptoms: Deny abdominal pain, chest pain or fever(s) Related Data Home Medications ?Medication ?Instructions ?Recorded ?Confirmed ascorbic acid (vitamin C) 500 mg 2,000 mg PO QPM 01/2103/09/25 tablet (Vitamin C) [id number]-kmuvyhabisxcb-ajasvljq 250 3 tab PO Q6H PRN Mi graine Headache 01/21/22 03/09/25 mg-250 mg-65 mg tablet (Excedrin Migraine) cholecalciferol (vitamin D3) 125 125 mcg PO QPM 03/09/25 mcg (5,000 unit) tablet (Vitamin D3) turmeric 100 mg-yuli 150 1 cap PO DAILY 02/03/2308/25 mg-olive 50 mg-oreg 150 mg-capryl capsule magnesium 200 mg tablet 200 mg PO DAILY 04/17/2308/25 vitamin B12 2,500 mcg-folic acid 1 tab PO DAILY 04/1703/09/25 400 mcg disintegrating tablet Previous Rx's ?Medication ?Instructions ?Recorded albuterol sulfate 90 mcg/actuation 2 inh inhalation Q4 H PRN shortness 03/09/25 aerosol inhaler of breath or wheezing #18 gr ams Allergies Allergy/AdvReac Type Severity Reaction Status Date / Time hydromorphone (From Dilaudid) Allergy ADR-Vomitin Verified 02/07/25 13:03 g Review of Systems 2 Const: Denies: fever(s) or chills Card: Denies: chest pain Resp: Denies: dyspnea GI: Denies: abdominal pain : Denies: dysuria, urinary frequency or urinary urgency Musc: Denies: neck pain or back pain Skin/Breast: Denies: rash PFSH ED 2 PFSH: Medical History Atherosclerosis of coronary artery without angina pectoris GERD (gastroesophageal reflux disease) Colon polyps Cervical spine pain Trigeminal neuralgia Graves disease Pure hypercholesterolemia Hypothyroidism GERD (gastroesophageal reflux disease) Surgical History H/O vasectomy History of subtotal thyroidectomy 1991 Family History Mother Cancer Brother Cancer Social History Smoking and tobacco/nicotine status: never used tobacco/nicotine Physical Exam 2 Const: GENERAL APPEARANCE: cooperative ORIENTATION/CONSCIOUSNESS: Yes awake, Yes oriented to person, Yes oriented to place and Yes oriented to time HENMT: COMMON NORMALS: normocephalic, atraumatic and hearing grossly normal bilaterally HEAD & SCALP: normocephalic and atraumatic Resp: COMMON NORMALS: normal respiratory effort, No retractions, No use of accessory muscles and clear to auscultation bilaterally AUSCULTATION: clear to auscultation bilaterally Cardio: COMMON NORMALS: regular rate, regular rhythm and No murmurs present (Cardio) RATE: regular rate RHYTHM: regular rhythm GI: COMMON NORMALS: Soft to palpation and No hepatosplenomegaly present A USCULTATION: Yes normoactive bowel sounds PALPATION: Yes Soft to palpation, No Tenderness to palpation present (GI), No Guarding due to palpation present (GI) and Yes No hepatosplenomegaly present Extremity: COMMON NORMALS: normal to inspection, capillary refill normal, no clubbing, cyanosis or edema, no calf tenderness and no pedal edema Neuro: SENSORIUM/ORIENTATION: Yes oriented to person, Yes oriented to place and Yes oriented to time Skin: COMMON NORMALS: no rashes or lesions noted GENERAL SKIN EXAM: no rashes or lesions noted Course 2 Vital Signs: Vital signs: Vital Signs Temperature 98.1 F 03/09/25 13:02 Pulse Rate 72 03/09/25 16:05 Respiratory Rate 24 H 03/09/25 15:35 Blood Pressure 118/75 03/09/25 16:05 Pulse Oximetry 95 03/09/25 16:05 Oxygen Delivery Me thod Room Air 03/09/25 13:02 MDM - SOB/Dyspnea Medical Decision Making COVID-19 is positive chest x-ray unremarkable. Patient was in 3 days we discussed use Paxlovid he declines. Supportive cares and follow-up as needed Medical Records I reviewed the patient's medical records. Lab Data I reviewed the patient's lab results. 03/09/25 13:07 03/09/25 13:07 Labs/Radiology: Radiology Impressions Chest X-Ray 03/09/25 12:55 IMPRESSION: 1. No acute cardiopulmonary finding. Laboratory Results WBC 8.65 10^3/uL (3.29-11.43) 03/09/25 13:07 RBC 5.16 10^6/uL (3.85-5.65) 03/09/25 13:07 Hgb 15.40 g/dL (11.27-16.99) 03/09/25 13:07 Hct 46.7 % (37-53) 03/09/25 13:07 MCV 90.5 fl (82-101) 03/09/25 13:07 MCH 29.8 pg (27-33) 03/09/25 13:07 MCHC 33.0 g/dL (30-55) 03/09/25 13:07 RDW 13.2 % (12.1-15.1) 03/09/25 13:07 Plt Count 164 10^3/cmm (157-399) 03/09/25 13:07 MPV 10.1 fL (7.4-10.4) 03/09/25 13:07 Neut % (Auto) 70.8 % 03/09/25 13:07 Lymph % (Auto) 17.2 % 03/09/25 13:07 [place] % (Auto) 10.9 % 03/09/25 13:07 Eos % (Auto) 0.3 % 03/09/25 13:07 Baso % (Auto) 0.5 % 03/09/25 13:07 Neut # (Auto) 6.12 10^3/uL (1.8-7.7) 03/09/25 13:07 Lymph # (Auto) 1.5 10^3/uL (0.8-4.8) 03/09/25 13:07 [place] # (Auto) 0.9 10^3/uL (0.2-0.9) 03/09/25 13:07 Eos # (Auto) 0.0 10^3/uL (0.0-0.8) 03/09/25 13:07 Baso # (Auto) 0.0 10^3/uL (0.0-0.1) 03/09/25 13:07 Nucleated RBC % (auto) 0 % 03/09/25 13:07 Nucleated RBCs # 0.0 /100WBC 03/09/25 13:07 Specimen Type Arterial 03/09/25 13:16 Sample Site Brachial, right 03/09/25 13:16 ABG pH 7.54 (7.35-7.45) H 03/09/25 13:16 ABG pCO2 26.3 mmHg (35-45) L 03/09/25 13:16 ABG pO2 79.8 mmHg (80.0-100.0) L 03/09/25 13:16 ABG PO2/FiO2 Ratio 380 03/09/25 13:16 ABG HCO3 22.2 mmol/L (22-26) 03/09/25 13:16 ABG O2 Saturation 97.8 03/09/25 13:16 ABG Base Excess 1.1 mmol/L (-2.0-2.0) 03/09/25 13:16 Ashutosh Test N/a 03/09/25 13:16 A-a O2 Gradient 4.6 mmHg (5-10) L 03/09/25 13:16 Hematocrit 47.1 % (42-52) 03/09/25 13:16 Hgb O2 Saturation 96.7 % (95-100) 03/09/25 13:16 Carboxyhemoglobin 0.7 %THgb (0.4-20.1) 03/09/25 13:16 Methemoglobin 0.3 % (0.4-1.5) L 03/09/25 13:16 Total Hemoglobin 15.4 g/dL (14-18) 03/09/25 13:16 Sodium 140.0 mmol/L (131-143) 03/09/25 13:16 Potassium 3.7 mmol/L (3.5-5.0) 03/09/25 13:16 Glucose 128.0 mg/dL (70-115) H 03/09/25 13:16 Ionized Calcium 1.1 mmol/L (1.1-1.4) 03/09/25 13:16 O2 Delivery Device Room air 03/09/25 13:16 FiO2 21.0 % 03/09/25 13:16 Delivery Department Supervisor ID Amh 03/09/25 13:16 Sodium 139 mmol/L (136-145) 03/09/25 13:07 Potassium 4.2 mmol/L (3.5-5.1) 03/09/25 13:07 Chloride 104 mmol/L (98-107) 03/09/25 13:07 Carbon Dioxide 23 mmol/L (22-29) 03/09/25 13:07 Anion Gap 16.2 (5-19) 03/09/25 13:07 BUN 15 mg/dL (8-23) 03/09/25 13:07 Creatinine 0.9 mg/dL (0.7-1.2) 03/09/25 13:07 GFR Calculation 84.2 mL/min (90-130) L 03/09/25 13:07 Glucose 94 mg/dL (65-115) 03/09/25 13:07 Calculated Osmolality 289 mOsm/kg (285-295) 03/09/25 13:07 Calcium 9.0 mg/dL (8.5-10.5) 03/09/25 13:07 Total Bilirubin 0.4 mg/dL (0.15-1.2) 03/09/25 13:07 AST 24 U/L (0-40) 03/09/25 13:07 ALT 19 U/L (0-41) 03/09/25 13:07 Alkaline Phosphatase 77 U/L (40-130) 03/09/25 13:07 Total Protein 7.2 g/dL (6.6-8.7) 03/09/25 13:07 Albumin 4.0 g/dL (3.5-5.2) 03/09/25 13:07 Globulin 3.2 g/dL (1.3-4.6) 03/09/25 13:07 Influenza A (PCR) Negative (Negative) 03/09/25 13:20 Influenza Type B (PCR) Negative (Negative) 03/09/25 13:20 RSV (PCR) Negative (Negative) 03/09/25 13:20 SARS-CoV-2 (PCR) Positive (Negative) A 03/09/25 13:20 All radiology interpretation(s) finalized by discharge Discharge Plan Discharge Patient Disposition: Home Clinical Impression: COVID-19 Condition: Stable Prescriptions: New albuterol sulfate 90 mcg/actuation HFA aerosol inhaler 2 inh INHALATION Q4H PRN (Reason: shortness of breath or wheezing) Qty: 18 0RF No Action [id number]-iixy-feepy-oreg-capry 100 mg-150 mg- 50 mg-150 mg capsule 1 cap PO DAILY ascorbic acid (vitamin C) [Vitamin C] 500 mg Tablet 2,000 mg PO QPM Excedrin Migraine 250-250-65 mg Tablet 3 tab PO Q6H PRN (Reason: Migraine Headache) cholecalciferol (vitamin D3) [Vitamin D3] 125 mcg (5,000 unit) Tablet 125 mcg PO QPM magnesium 200 mg Tablet 200 mg PO DAILY vitamin [id number] acid 2,500-400 mcg Tablet,Disintegrating 1 tab PO DAILY Discharge Orders: Discharge ED (Routine); Ordered 03/09/25 Ordered By: Jerod Jones Referrals: Epi Daniels, [Primary Care Provider] - Discharge Diet: Usual diet Discharge Activity: Increase activity as tolerated Patient Instructions: Opioid Safety, Pain Management Activity Restrictions/Additional Instructions: Thank you for choosing [facility] for your healthcare needs today. It is very important that you follow up as instructed or that you return to the Emergency Department should you have concerns or if your condition changes or worsens in any way. You were seen in the emergency room with complaint of shortness of breath and cough. Chest x-ray was normal testing shows you have COVID. We discussed the Paxlovid you ultimately declined. Supportive cares. Avoid exposure to other people until you are 24 hours past the improvement of symptoms. Print Language: Qatari Coding Level of Care Code ED Rn Team Leader for Sherri Canas
[2025-03-09 13:27] LABS: ABG PCO2 26.3 mmHg (35-45); ABG PH Result 7.54 (7.35-7.45); Alveolar-Arterial Oxygen Gradi 4.6 mmHg (5-10); Arterial Blood Gas Hematocrit 47.1 % (42-52); Base Excess ABG 1.1 mmol/L (-2.0-2.0); Blood Gas Operator Identificat AMH; Blood Gas Sample Site Brachial, right; Blood Gas Sample Type Arterial; Carboxyhemoglobin 0.7 %THgb (0.4-20.1); HCO3 ABG 22.2 mmol/L (22-26); HGB O2 Sat 96.7 % (95-100); Ionized Calcium Level - ABG 1.1 mmol/L (1.1-1.4); Methemoglobin 0.3 % (0.4-1.5); Oxygen Device ROOM AIR; Oxygen Saturation ABG 97.8; PO2 ABG 79.8 mmHg (80.0-100.0); PO2 FiO2 Ratio Arterial Blood 380; Potassium Level - ABG 3.7 mmol/L (3.5-5.0); Total Hemoglobin 15.4 g/dL (14-18)
[2025-03-09 13:38] LABS: Basophils % 0.5 %; Eosinophils % 0.3 %; Hematocrit 46.7 % (37-53); Lymphocytes # 1.5 10^3/uL (0.8-4.8); Lymphocytes % 17.2 %; Mean Corpuscular Hemoglobin 29.8 pg (27-33); Mean Corpuscular Volume 90.5 fl (82-101); Mean Platelet Volume 10.1 fL (7.4-10.4); Monocytes # 0.9 10^3/uL (0.2-0.9); Monocytes % 10.9 %; Neutrophils # 6.12 10^3/uL (1.8-7.7); Neutrophils % 70.8 %; Nucleated Red Blood Cells % 0 %; Platelet Count 164 10^3/cmm (157-399); Red Blood Count 5.16 10^6/uL (3.85-5.65); Red Cell Distribution Width 13.2 % (12.1-15.1); White Blood Count 8.65 10^3/uL (3.29-11.43)
[2025-03-09 13:58] LABS: Alanine Aminotransferase 19 U/L (0-41); Alkaline Phosphatase 77 U/L (40-130); Anion Gap 16.2 (5-19); Aspartate Amino Transferase 24 U/L (0-40); Blood Urea Nitrogen 15 mg/dL (8-23); Carbon Dioxide 23 mmol/L (22-29); Chloride 104 mmol/L (98-107); Creatinine Clr Calc Pharmacy 83.0681; Globulin 3.2 g/dL (1.3-4.6); Glomerular Filtration Rate 84.2 mL/min (90-130); Glucose 94 mg/dL (65-115); Osmolality Calculated 289 mOsm/kg (285-295); Potassium 4.2 mmol/L (3.5-5.1); Sodium 139 mmol/L (136-145); Total Bilirubin 0.4 mg/dL (0.15-1.2); Total Protein 7.2 g/dL (6.6-8.7)
[2025-03-09 14:39] LABS: Influenza A NEGATIVE (Negative); Influenza B NEGATIVE (Negative); Respiratory Syncytial Virus Ce NEGATIVE (Negative)
[2025-03-09 14:46] LABS: SARS-CoV-2 PCR Positive (Negative)
== END 2025-03-09 16:06 | disposition home or self-care (01) ==
PROVIDERS: Emergency Provider Family Medicine; PCP Emergency Medicine Emergency Medical Services
DX: U07.1 COVID-19 (principal); Z11.52 Encounter for screening for COVID-19; I25.10 Atherosclerotic heart disease of native coronary artery without angina pectoris
CPT/HCPCS: 36415; 36600; 71045; 80051; 80053; 82330; 82805; 85025; 87637; 93005; 99285

== ENCOUNTER 2025-03-25 10:39 | Outpatient (CLI) | payer OTHER, SELFPAY ==
--- NOTE | 2025-03-25 10:30 | US_ITS ---
WS: [id number] THYROID ULTRASOUND HISTORY: E78.5 - Hyperlipidemia, unspecified, history of a subtotal thyroidectomy for Paramjit's disease. COMPARISON: None available. Right lobe: 0.7 cm x 1.3 cm x 2.9 cm (w x ap x l). Volume: 1.2 cm3. Small amount of residual thyroid tissue at the thyroid bed. No increased vascularity and no mass. Left lobe: 1.5 cm x 2.4 cm x 3.5 cm (w x ap x l). Volume: 6.0 cm3. Mildly heterogeneous enlarged residual LEFT thyroid. No mass or increased vascularity. Isthmus: 0.3 cm. US/US thyroid [id number] IMPRESSION: 1. Status post subtotal thyroidectomy. 2. Minimal amount of thyroid tissue in the RIGHT renal bed. 3. LEFT thyroid lobe is enlarged and mildly heterogeneous but no mass.
== END 2025-03-25 10:40 | disposition home or self-care (01) ==
PROVIDERS: PCP Emergency Medicine Emergency Medical Services; Visit Provider Internal Medicine
DX: E78.5 Hyperlipidemia, unspecified (principal); E03.9 Hypothyroidism, unspecified; E05.00 Thyrotoxicosis with diffuse goiter without thyrotoxic crisis or storm; Z98.890 Other specified postprocedural states; E04.9 Nontoxic goiter, unspecified; R93.89 Abnormal findings on diagnostic imaging of other specified body structures
CPT/HCPCS: 76536

== ENCOUNTER → 2025-05-04 08:41 | Outpatient (BNVA) | payer OTHER, SELFPAY | PROVIDERS: PCP Emergency Medicine Emergency Medical Services; Referring Provider Nurse Practitioner Family; Visit Provider Internal Medicine | DX: E06.3 Autoimmune thyroiditis (principal); E03.8 Other specified hypothyroidism | CPT/HCPCS: 99214 ==

== ENCOUNTER → 2025-08-24 07:58 | Outpatient (BNVA) | payer OTHER, SELFPAY | PROVIDERS: PCP Emergency Medicine Emergency Medical Services; Visit Provider Nurse Practitioner Family | DX: L82.1 Other seborrheic keratosis (principal); L57.8 Other skin changes due to chronic exposure to nonionizing radiation; Z08 Encounter for follow-up examination after completed treatment for malignant neoplasm; Z85.828 Personal history of other malignant neoplasm of skin; D48.5 Neoplasm of uncertain behavior of skin; L57.0 Actinic keratosis | CPT/HCPCS: 11102; 17000; 99213 ==